=== PATIENT | female | born 1955 | race Caucasian/White ===

== ENCOUNTER 2019-03-17 22:07 | Inpatient (IN) | payer MEDICARE ==
[2019-03-17] MEDS ORDERED: metroNIDAZOLE 500 MG in Premix Bag 1 BAG IVPB SCH (22:45)
[2019-03-17] MEDS ORDERED: Ondansetron ODT 4 MG TAB PO PRN (23:26)
[2019-03-17] MEDS ORDERED: hydrALAZINE 20 MG/ML VIAL SLOW IVP PRN (23:26)
[2019-03-17] MEDS ORDERED: Ondansetron PF 4 MG/2 ML Vial IVP PRN (23:26)
[2019-03-17] MEDS ORDERED: Dextrose 5% in Water 1,000 ML IV PRN (23:26)
[2019-03-17] MEDS ORDERED: Dextrose 50% Abboject 50 ML SYRINGE SLOW IVP PRN (23:26)
[2019-03-17] MEDS ORDERED: Morphine 2 MG/ML SYRINGE SLOW IVP PRN (23:26)
--- NOTE | 2019-03-18 00:14 | RAD ---
Portable frontal chest radiograph: 03/18/2019 COMPARISON: None HISTORY: Preoperative patient FINDINGS: Lungs are clear. Heart and mediastinal contours appear within normal limits. Mild atheroscl erotic calcification of the aortic arch. IMPRESSION: No acute findings.
--- NOTE | 2019-03-18 02:42 | HP ---
REQUESTING ER PHYSICIAN: Annita CONSULTS: Orthopedic Surgery, Dr. Rosas. HISTORY OF PRESENT ILLNESS: This is a 63-year-old female who was a transfer from [place] [facility], status post dog bite. The patient was dog sitting and her pit bull and the other pit bull started to fight and she attempted to break them up when she was bit by the dog that she was dog sitting. The patient reports that the dogs are up-to-date on all vaccinations. The patient reports pain to left hand and wounds to both forearms. The patient was given 1 L of normal saline in [place] [facility] and also vancomycin IV, and morphine 10 mg by EMS for pain. The patient last ate at around 8 a.m. this morning. Trauma service was contacted for admission, Orthopedic Surgery plans to take the patient for washout tomorrow to left open fracture. PAST MEDICAL HISTORY: Stroke 4 years ago with mild right-sided deficit and aphasia which has improved, heart murmur, coronary artery disease, hypertension. PAST SURGICAL HISTORY: Appendectomy, hysterectomy. 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 PSYCHIATRIC HISTORY: Bipolar. ALLERGIES: PENICILLIN AND DOXYCYCLINE. MEDICATIONS: 1. Amlodipine 2.5 mg. 2. Atorvastatin 40 mg at bedtime. 3. Gabapentin 600 mg q.8 hours. 4. Metoprolol extended release 50 mg once a day. REVIEW OF SYSTEMS: A 10-point review of systems is negative unless otherwise indicated in the above HPI. PHYSICAL EXAMINATION: VITAL SIGNS: Blood pressure 113/86, heart rate 73, respirations 20, SpO2 of 96 % on room air, temperature 98. GENERAL: The patient is awake, alert, in no distress. HEENT: Head is atraumatic and normocephalic. Mucous membranes dry. CARDIOVASCULAR: Regular rate, regular rhythm. Positive 3/5 systolic murmur, no pedal edema, no JVD. RESPIRATORY: Chest rise symmetrical, bilateral breath sounds clear, no wheezing , rales, or rhonchi. EXTREMITIES: Dog bites and lacerations to both upper extremities, left 5th digit with swelling and bruising, normal sensation and movement distally, distal pulses 2+ in all extremities, bilateral abrasions to knees. NEUROLOGIC: No focal deficit, mild weakness to right side from previous stroke, mild aphasia from CVA. LABORATORY DATA: WBC 8.3, RBC 5.28, hemoglobin 15.8, hematocrit 49.9, platelets 157. Sodium 143, potassium 5.1, chloride 109, carbon dioxide 21, anion gap 18, BUN 31, creatinine 1.75, estimated GFR 29, glucose 88, lactic acid 1.4, calcium 9.3, total bilirubin 0.4, AST 24, ALT 14, alkaline phosphatase 123. C-reactive protein less than 0.50. DIAGNOSTICS: Left hand x-ray, impression, fracture at the base of the 5th proximal phalanx, presumably an open fracture. Chest x-ray is pending. IMPRESSION: 1. Status post dog bite. 2. Left open hand fracture. 3. Bilateral abrasions and lacerations on both arms. 4. Acute kidney injury on chronic. PLAN: We will admit the patient to the surgical ortho floor. Dr. Rosas was consulted by ER physician, who reports he plans to take the patient for a washout tomorrow around 11. We will place the patient on a pain regimen. The patient will be n.p.o. after midnight and placed on maintenance fluids. We will repeat lab work in the morning to see if kidney function has improved. The plan will be discussed with the attending surgeon after this dictation. Job ID: [id number] [facility]
[2019-03-18] MEDS: Sodium Chloride 0.9% 1,000 ML IV SCH ×3 (04:21→14:06)
[2019-03-18] MEDS: Acetaminophen 500 MG TAB PO SCH ×4 (04:21→17:19)
[2019-03-18] MEDS: traMADol HCl 50 MG TAB PO SCH ×4 (04:21→17:22)
[2019-03-18 05:13] LABS: Anion Gap 10 mmol/L (10-20); BUN (Urea Nitrogen) 24 mg/dL (9.8-20.1); Calc. Creatinine Clearance 0 mL/min (70-130); Calcium 8.5 mg/dL (7.8-10.44); Carbon Dioxide 22 mmol/L (23-31); Chloride 113 mmol/L (98-107); Estimated GFR-MDRD 48; Glucose 86 mg/dL (80-115); Magnesium 1.9 mg/dL (1.6-2.6); Phosphorus 3.8 mg/dL (2.3-4.7); Potassium 4.8 mmol/L (3.5-5.1); Sodium 140 mmol/L (136-145)
[2019-03-18 05:14] VITALS: BMI 18.6
[2019-03-18] MEDS: Oxazepam 10 MG CAP PO SCH ×3 (06:00→21:55)
[2019-03-18 06:04] LABS: #Eosinphils 0.2 thou/uL (0.0-0.7); #Lymphocytes 1.2 thou/uL (1.20-3.40); #Monocytes 0.8 thou/uL (0.11-0.59); #Neutrophils 4.9 thou/uL (1.40-6.50); %Basophils 0.1 % (0.0-1.0); %Eosinophils 2.9 % (0.0-10.0); %Lymphocytes 17.4 % (21.0-51.0); %Monocytes 11.1 % (0.0-10.0); %Neutrophils 68.4 % (42.0-75.0); Hemoglobin 14.1 g/dL (12.0-16.0); Large Platelets SLIGHT; MDiff Complete? YES; Mean Corpuscular HGB CONC 32.7 g/dL (32.0-36.0); Mean Corpuscular Hemoglobin 30.7 pg (27.0-31.0); Mean Corpuscular Volume 93.9 fL (78.0-98.0); Platelet Count 117 thou/uL (130-400); Platelet Morphology Comment Appears Decreased; Red Blood Cell (RBC) Count 4.57 mill/uL (4.20-5.40); White Blood Cell (WBC) Count 7.1 thou/uL (4.8-10.8)
--- NOTE | 2019-03-18 08:47 | CON ---
DATE OF CONSULTATION: 03/18/2019 BRIEF HISTORY OF PRESENT ILLNESS: The patient is a 63-year-old right-hand dominant lady, who was transferred from the [facility] to [facility] in [place] following a dog bite to her left hand and forearm. She reports that her pit bull began to fight with another pit bull, when she tried to break the fight up when she was bit in the hand and forearm. Upon evaluation in [place], she was found to have a fracture at the base of the proximal phalanx of the small finger with a puncture wound dorsally. There was some displacement. The patient was given antibiotics in [place], and was also found to be mildly hypotensive. She was given some IV fluids and then transferred to [facility] where the Trauma Team admitted her for anticipated orthopedic irrigation, debridement, and stabilization of the fracture. This morning, the patient is examined in her hospital bed. She is awake, alert, and appears comfortable. PAST MEDICAL HISTORY: Remarkable for a stroke approximately 4 years ago with some right-sided strength deficit. She also has an expressive aphasia. The patient also with a history of heart murmur, coronary artery disease, and hypertension. PAST SURGICAL HISTORY: Includes hysterectomy and appendectomy. MEDICATIONS: Include, 1. Metoprolol once daily. 2. Atorvastatin. 3. Amlodipine. 4. Gabapentin. ALLERGIES: TO PENICILLIN AND DOXYCYCLINE. SOCIAL HISTORY: The patient is a smoker and has a nearly 50 pack-year history. Does have a past history of drug use and does consume alcoholic beverages daily. FAMILY HISTORY: Noncontributory for this admission. REVIEW OF SYSTEMS: No recent fevers, chills, or sweats. The patient denies chest pain or shortness of breath. She denies numbness or tingling in the left hand. She does have some mild sensory deficits in the right hand secondary to her stroke. PHYSICAL EXAMINATION: VITAL SIGNS: She has a temperature of 97.8, heart rate of 60, respiratory rate of 18, and blood pressure of 111/70. HEENT: Atraumatic and normocephalic. HEART: Shows a regular rate and rhythm with a 3/6 systolic ejection murmur. LUNGS: Clear to auscultation bilaterally with good breath sounds. Chest wall is nontender. EXTREMITIES: Remarkable for bilateral lower extremities that are atraumatic. A right upper extremity with some diffuse weakness within the arm, but no deformities or focal complaints of pain. A left upper extremity with an atraumatic shoulder and elbow. She was found to have some puncture wounds scattered along the forearm, but without extensive bleeding. Her forearm compartments are soft. Distally, she has a puncture wound over the dorsal aspect of the base of the small finger. She has an extension deformity at this fracture at the base of the proximal phalanx. She has intact sensation in the radial, median, and ulnar distributions. LABORATORY DATA: She was found to have a white count of 7.1, a hematocrit of 42.9, and 117,000 platelets. IMAGING STUDIES: Left hand x-ray remarkable for fracture of the base of the fifth digit with dorsiflexion deformity. ASSESSMENT: Status post dog bite injury to left hand with open fracture of left proximal phalanx as well as some abrasions and lacerations of the left forearm. PLAN: At this time, the patient will be taken to the operating room this morning for irrigation and debridement of her open wounds and probable pin stabilization of this fracture. Today, I discussed with the patient risks and benefits of this proposed procedure. Risks include, but are not limited to bleeding, infection, nerve injury, nonunion, malunion, loss of limb or life. The patient appears to understand and does wish to proceed. Consent will be obtained prior to her surgical procedure. Job ID: [id number]
--- NOTE | 2019-03-18 09:50 | HP ---
CHIEF COMPLAINT: Dog bite of arm. HISTORY OF PRESENT ILLNESS: The patient is a 63-year-old female, who was trying to break up a fight between 2 dogs. They then turned on her and lacerated her arms, left greater than right. She also had what appears to be an open fracture and is going to the OR for that. PAST MEDICAL HISTORY: CVA, coronary artery disease, and hypertension. PAST SURGICAL HISTORY: Appendectomy and hysterectomy. MEDICATIONS: 1. Amlodipine. 2. Atorvastatin. 3. Gabapentin. 4. Metoprolol. SOCIAL HISTORY: She does still smoke 1/2 packs per day. Past methamphetamine use. She does drink alcohol. She has bipolar. ALLERGIES: PENICILLIN AND DOXYCYCLINE. PHYSICAL EXAMINATION: VITAL SIGNS: Temperature 97.7, pulse 65, and blood pressure 99/64. GENERAL: She is a thin female, looks older than stated age, in no apparent distress. Left arm is bandaged. HEENT: Otherwise unremarkable. LUNGS: Clear. HEART: Regular rate and rhythm. ABDOMEN: Soft, nondistended, and nontender. EXTREMITIES: She has multiple lacerations of her left forearm and puncture wounds of the right forearm. She is currently in a splint on the left. Pulses intact. She has a mild numbness of lateral fifth digit. LABORATORY DATA: White count 7.1, hemoglobin and hematocrit of 14 and 42, platelet count 117. Electrolytes; creatinine 1.1, chloride 113, CO2 of 22. X-rays show fractures in left hand. ASSESSMENT: Open fracture, left hand. PLAN: Treatment per Orthopedics. Job ID: [id number]
[2019-03-18] MEDS: Gabapentin 300 MG CAP PO SCH ×2 (10:13→17:05)
[2019-03-18] MEDS: Famotidine 20 MG TAB PO SCH ×2 (10:14→21:55)
[2019-03-18] MEDS ORDERED: Neomycin-Polymyxin 1 ML AMP ONE ×2 (11:42→12:45)
[2019-03-18] MEDS ORDERED: Fentanyl 100 MCG/2 ML VIAL ONE ×2 (11:52→14:07)
[2019-03-18] MEDS ORDERED: metroNIDAZOLE 500 MG/100 ML BAG ONE (12:28)
[2019-03-18] MEDS ORDERED: Meperidine HCl/PF 25 MG/ML VIAL SLOW IVP PRN (13:03)
[2019-03-18] MEDS ORDERED: Ondansetron HCl/PF 4 MG/2 ML Vial IVP PRN (13:03)
[2019-03-18] MEDS ORDERED: Promethazine HCl 25 MG/ML VIAL SLOW IVP PRN (13:03)
[2019-03-18] MEDS ORDERED: Promethazine HCl 25 MG/ML VIAL IM PRN (13:03)
--- NOTE | 2019-03-18 13:14 | RAD ---
EXAM: 3 views of the left small finger HISTORY: Proximal phalanx fracture COMPARISON: None FINDINGS: A single limited fluoroscopic view of the small finger shows the patient is status post K w anthony fixation of the proximal phalanx fracture. IMPRESSION: Status post percutaneous fixation of proximal phalanx fracture
[2019-03-18] MEDS ORDERED: Clindamycin 150 MG CAP PO SCH (13:30)
[2019-03-18 15:56] LABS: #Eosinphils 0.2 thou/uL (0.0-0.7); #Lymphocytes 0.9 thou/uL (1.20-3.40); #Monocytes 0.4 thou/uL (0.11-0.59); #Neutrophils 4.2 thou/uL (1.40-6.50); %Basophils 0.1 % (0.0-1.0); %Eosinophils 3.3 % (0.0-10.0); %Lymphocytes 15.6 % (21.0-51.0); %Monocytes 7.8 % (0.0-10.0); %Neutrophils 73.2 % (42.0-75.0); Hemoglobin 12.8 g/dL (12.0-16.0); Mean Corpuscular HGB CONC 31.4 g/dL (32.0-36.0); Mean Corpuscular Hemoglobin 30.2 pg (27.0-31.0); Mean Corpuscular Volume 96.2 fL (78.0-98.0); Mean Platelet Volume 9.1 fL (7.4-10.4); Platelet Count 131 thou/uL (130-400); RBC Distribution Width 14.1 % (11.5-14.5); Red Blood Cell (RBC) Count 4.22 mill/uL (4.20-5.40); White Blood Cell (WBC) Count 5.7 thou/uL (4.8-10.8)
[2019-03-18 16:02] LABS: Prothrombin Time 13.6 SEC (12.0-14.7)
[2019-03-18] MEDS ORDERED: PHENYLEPHRINE-NS 100 MCG/ML 10 ML SYRINGE ONE (16:15)
[2019-03-18] MEDS ORDERED: Ketorolac Tromethamine 30 MG/ML VIAL ONE (16:15)
[2019-03-18] MEDS ORDERED: Metoclopramide HCl 10 MG/2 ML VIAL ONE (16:15)
[2019-03-18] MEDS ORDERED: Ondansetron PF 4 MG/2 ML Vial ONE (16:15)
[2019-03-18] MEDS ORDERED: Lidocaine 1% PF 5 ML VIAL ONE (16:15)
[2019-03-18] MEDS ORDERED: PROPOFOL 200 MG/20 ML VIAL ONE (16:15)
[2019-03-18] MEDS ORDERED: ePHEDrine 50 MG/ML VIAL ONE (16:15)
[2019-03-18 16:17] LABS: Anion Gap 11 mmol/L (10-20); BUN (Urea Nitrogen) 22 mg/dL (9.8-20.1); Calc. Creatinine Clearance 40 mL/min (70-130); Calcium 8.4 mg/dL (7.8-10.44); Carbon Dioxide 21 mmol/L (23-31); Chloride 111 mmol/L (98-107); Estimated GFR-MDRD 47; Glucose 94 mg/dL (80-115); Magnesium 1.7 mg/dL (1.6-2.6); Phosphorus 4.1 mg/dL (2.3-4.7); Potassium 4.3 mmol/L (3.5-5.1); Sodium 139 mmol/L (136-145)
[2019-03-18 16:18] LABS: Lactic Acid 1.3 mmol/L (0.5-2.2)
[2019-03-18] MEDS ORDERED: Magnesium 2 GM/50 ML 2 GM in Premix Bag 1 BAG IVPB SCH (17:00)
[2019-03-18] MEDS ORDERED: Hydrocortisone Sod Succ/PF 100 mg/2 ml Vial IVP SCH ×2 (17:00)
[2019-03-18] MEDS: Clindamycin 150 MG CAP PO SCH (17:05)
[2019-03-18] MEDS: Ciprofloxacin 500 MG TAB PO SCH (21:55)
[2019-03-18] MEDS: Atorvastatin Calcium 40 MG TAB PO SCH (21:55)
[2019-03-18] MEDS: traMADol HCl 50 MG TAB PO PRN (22:08)
[2019-03-19] MEDS: traMADol HCl 50 MG TAB PO SCH ×4 (00:12→17:43)
[2019-03-19] MEDS: Gabapentin 300 MG CAP PO SCH ×3 (00:13→16:25)
[2019-03-19] MEDS: Hydrocortisone Sod Succ/PF 100 mg/2 ml Vial IVP SCH ×4 (00:13→17:43)
[2019-03-19] MEDS: Acetaminophen 500 MG TAB PO SCH ×4 (00:13→17:43)
[2019-03-19] MEDS: Clindamycin 150 MG CAP PO SCH ×3 (00:13→16:25)
[2019-03-19] MEDS: Sodium Chloride 0.9% 1,000 ML IV SCH (02:11)
[2019-03-19 04:34] LABS: #Basophils 0.1 thou/uL (0.0-0.2); #Lymphocytes 0.2 thou/uL (1.20-3.40); #Monocytes 0.2 thou/uL (0.11-0.59); #Neutrophils 4.8 thou/uL (1.40-6.50); %Basophils 1.4 % (0.0-1.0); %Eosinophils 0.2 % (0.0-10.0); %Lymphocytes 4.2 % (21.0-51.0); %Monocytes 2.9 % (0.0-10.0); %Neutrophils 91.3 % (42.0-75.0); Hemoglobin 12.1 g/dL (12.0-16.0); Mean Corpuscular HGB CONC 31.5 g/dL (32.0-36.0); Mean Corpuscular Hemoglobin 30.5 pg (27.0-31.0); Mean Corpuscular Volume 96.7 fL (78.0-98.0); Mean Platelet Volume 9.4 fL (7.4-10.4); Platelet Count 129 thou/uL (130-400); RBC Distribution Width 14.1 % (11.5-14.5); Red Blood Cell (RBC) Count 3.95 mill/uL (4.20-5.40); White Blood Cell (WBC) Count 5.3 thou/uL (4.8-10.8)
[2019-03-19 05:04] LABS: Anion Gap 10 mmol/L (10-20); BUN (Urea Nitrogen) 22 mg/dL (9.8-20.1); Calc. Creatinine Clearance 35 mL/min (70-130); Calcium 8.6 mg/dL (7.8-10.44); Carbon Dioxide 21 mmol/L (23-31); Chloride 111 mmol/L (98-107); Estimated GFR-MDRD 40; Glucose 132 mg/dL (80-115); Magnesium 2.3 mg/dL (1.6-2.6); Phosphorus 3.8 mg/dL (2.3-4.7); Potassium 5.2 mmol/L (3.5-5.1); Sodium 137 mmol/L (136-145)
[2019-03-19] MEDS: Ciprofloxacin 500 MG TAB PO SCH ×2 (05:31→20:16)
[2019-03-19] MEDS: Oxazepam 10 MG CAP PO SCH ×2 (05:31→13:56)
[2019-03-19] MEDS: Famotidine 20 MG TAB PO SCH ×2 (08:21→20:15)
[2019-03-19] MEDS ORDERED: Aspirin 81 mg Enteric Coated Tablet PO SCH (09:00)
[2019-03-19] MEDS ORDERED: Sodium Chloride 0.9% 1,000 ML IV SCH (09:49)
--- NOTE | 2019-03-19 10:13 | OP ---
DATE OF PROCEDURE: 03/18/2019 PREOPERATIVE DIAGNOSES: 1. Open fracture, left small finger proximal phalanx. 2. Multiple soft tissue dog bite wounds, left hand and left forearm. POSTOPERATIVE DIAGNOSES: 1. Open fracture, left small finger proximal phalanx, extra-articular. 2. Lacerations of dorsal aspect of left palm proximal to the metacarpophalangeal joint measuring approximately 3 cm with forearm lacerations in total measuring approximately 5 cm with puncture wounds through the fascia. PROCEDURE PERFORMED: 1. Closed reduction and percutaneous pin stabilization of left proximal phalanx fracture, small finger. 2. Irrigation and debridement of multiple bite wounds to left hand and left forearm. 3. Wound closure of left forearm and left dorsal hand laceration measuring 3 cm. ANESTHESIA: General. TOURNIQUET TIME: 29 minutes at 250 mmHg. COMPLICATIONS: None. DRAINS: None. SPECIMEN: None. INDICATIONS FOR PROCEDURE: The patient is a 63-year-old right-hand dominant lady, who is status post dog bite wound to left hand and forearm. X-rays demonstrate a fracture of the base of the proximal phalanx. The patient now is taken to the operating room for irrigation and debridement of these multiple bite wounds as well as stabilization of the proximal phalanx fracture. DESCRIPTION OF PROCEDURE: The patient was brought to the operating room and a time-out performed followed by induction of general anesthesia. Next, a sterile prep and drape were performed of the left upper extremity. She was found to have multiple puncture wounds in the forearm, approximately 4 of these appeared to be deep to the fascia. Next, the limb was elevated and then tourniquet inflated to 250 mmHg. Next, the 4 puncture wounds were felt to go deep to the fascia were increased, incised with a scalpel such that the fascia could be appreciated. Indeed, there was penetration of the fascia. These were explored and found to be free of any obvious foreign body. Next, each of these 4 wounds were thoroughly irrigated with bulb syringe and normal saline with antibiotic irrigant added. Once thoroughly irrigated, further inspection was made and no necrotic tissue was encountered. In 3 of these 4 small wounds, the surgical extension was closed with 4-0 nylon loosely with the traumatic portion of the wound left open for drainage. Next, attention was placed to the left hand. She was found to have 2 puncture wounds, 1 over the volar surface of the ulnar side of the hand just proximal to the metacarpophalangeal joint. The other 1 more jagged and lengthy and laceration dorsally. These were both inspected. The volar wound found to be very superficial. The dorsal wound did extend into the extensor tendons, although the tendons as visualized through this traumatic wound were found to be intact. This wound was irrigated with a liter of normal saline using bulb syringe as was the palmar wound. Next, the fracture was inspected with C-arm. It was found to be dorsally angulated as such it was reduced manually, and then, 2 K-wires measuring 0.045 were passed from the base of the proximal phalanx obliquely across the fracture and up into the distal shaft. This restored angular alignment and also rotational alignment. Final AP and lateral C-arm images were then obtained. The traumatic wounds were then loosely reapproximated with 4-0 nylon. At the completion of this, Xeroform bulky gauze and fiberglass splint dressing were applied to the arm, and then, the patient was transferred to recovery room in stable condition. Tourniquet was let down at the completion of dressing. Job ID: [id number]
[2019-03-19] MEDS: traMADol HCl 50 MG TAB PO PRN (14:42)
--- NOTE | 2019-03-19 14:53 | PRG ---
DATE OF SERVICE: 03/19/2019 SUBJECTIVE: The patient was seen this morning, lying in bed and nasal cannula oxygen in place, reported pain is well controlled. Bilateral upper extremities with dressings and left upper extremity with splint in place. Postoperatively, the patient had episode of hypotension that was resolved with 500 mL of crystalloid intraoperatively. The patient was also hypotensive and received vasopressors. This morning, she is awake and alert and blood pressure has improved. She is continuing to urinate normal saline at 50 an hour. She denies nausea, vomiting, or diarrhea. OBJECTIVE: GENERAL: Middle-aged female, sitting in bed with no signs of acute distress. PULMONARY: Equal chest rise and fall. Clear breath sounds bilaterally. No signs of acute respiratory distress. However, the patient does take very shallow breaths naturally. CARDIAC: Regular rate and rhythm. No murmurs, gallops, or rubs. GI: Abdomen is soft, nontender, and nondistended. EXTREMITIES: 2+ pulses in all extremities. No significant swelling noted. Gross motor and sensation intact. Dressings to bilateral upper extremities and splint in place to left upper extremity. NEUROLOGIC: GCS is 15. Gross motor and sensation are intact. Pupils equal, round, and reactive to light bilaterally. LABORATORY FINDINGS: White count 5.3, hemoglobin 12.1, hematocrit 38.2, platelets 129. Sodium 134, potassium 5.2, chloride 111, carbon dioxide 21, BUN 22, creatinine 1.33, and glucose 134. DIAGNOSTIC FINDINGS: There are no new diagnostic findings to report. ASSESSMENT: 1. Status post attack by dog. 2. Fracture of the left base of the fifth proximal phalanx. 3. Wounds to bilateral upper extremities, status post repair. 4. Acute on chronic kidney disease, worse today. 5. History of hypertension and bipolar disorder. PLAN: The patient was urgently going to be discharged today; however, her kidney function has slightly gotten worse. It is likely that it was caused from the hypotensive episode yesterday. We will continue normal saline at 50 an hour and reassess her kidney function at that time. The patient is complaining that she is drowsy, so we will discontinue the Serax today and monitor closely for signs of alcohol withdrawal and consider restarting at a smaller dose at that time. Continue current pain regimen. The patient denying DVT prophylaxis with aspirin because she reports she has a history of GI bleed. She would not like to receive anticoagulants at this time. Continue current antibiotics as prescribed by Orthopedic Surgery. Restart home medications as clinically indicated. The patient was discussed with Dr. Espinosa before this dictation. Job ID: [id number]
[2019-03-19] MEDS ORDERED: Albuterol Sulfate 1.25 MG/3 ML NEB NEB PRN (16:33)
[2019-03-19] MEDS ORDERED: Albuterol Sulfate 1.25 MG/3 ML NEB NEB SCH (16:45)
--- NOTE | 2019-03-19 16:59 | RAD ---
Portable frontal chest radiograph: 03/19/2019 COMPARISON: 03/17/2019 HISTORY: Shortness of breath FINDINGS: There is new diffuse interstitial prominence with new pulmonary vascular congestion. Small new bilateral pleural effusions are noted with new airspace disease within the right lung base. IMPRESSION: Findings suggesting interval development of pulmonary edema. Infectious pneumonitis canno t be excluded. Follow-up imaging following treatment to document resolution advised.
[2019-03-19] MEDS ORDERED: Furosemide 20 MG/2 ML VIAL SLOW IVP SCH ×2 (17:30→21:30)
[2019-03-19] MEDS: Senokot S 8.6-50 MG TAB PO SCH (20:15)
[2019-03-19] MEDS: Atorvastatin Calcium 40 MG TAB PO SCH (20:16)
[2019-03-20] MEDS: Acetaminophen 500 MG TAB PO SCH ×4 (00:11→16:25)
[2019-03-20] MEDS: Hydrocortisone Sod Succ/PF 100 mg/2 ml Vial IVP SCH ×4 (00:11→17:16)
[2019-03-20] MEDS: Gabapentin 300 MG CAP PO SCH ×3 (00:11→16:25)
[2019-03-20] MEDS: Clindamycin 150 MG CAP PO SCH ×3 (00:11→16:25)
[2019-03-20] MEDS: traMADol HCl 50 MG TAB PO SCH ×4 (00:12→17:21)
[2019-03-20 05:21] LABS: #Lymphocytes 0.5 thou/uL (1.20-3.40); #Monocytes 0.4 thou/uL (0.11-0.59); #Neutrophils 8.7 thou/uL (1.40-6.50); %Basophils 0.2 % (0.0-1.0); %Eosinophils 0.1 % (0.0-10.0); %Monocytes 3.8 % (0.0-10.0); %Neutrophils 90.9 % (42.0-75.0); Hemoglobin 11.4 g/dL (12.0-16.0); Mean Corpuscular HGB CONC 31.3 g/dL (32.0-36.0); Mean Corpuscular Hemoglobin 30.3 pg (27.0-31.0); Mean Corpuscular Volume 96.6 fL (78.0-98.0); Platelet Count 144 thou/uL (130-400); RBC Distribution Width 14.4 % (11.5-14.5); Red Blood Cell (RBC) Count 3.76 mill/uL (4.20-5.40); White Blood Cell (WBC) Count 9.6 thou/uL (4.8-10.8)
[2019-03-20] MEDS: Ciprofloxacin 500 MG TAB PO SCH ×2 (05:37→20:38)
[2019-03-20 05:45] LABS: Anion Gap 11 mmol/L (10-20); BUN (Urea Nitrogen) 22 mg/dL (9.8-20.1); Calc. Creatinine Clearance 34 mL/min (70-130); Calcium 8.7 mg/dL (7.8-10.44); Carbon Dioxide 24 mmol/L (23-31); Chloride 110 mmol/L (98-107); Estimated GFR-MDRD 39; Glucose 138 mg/dL (80-115); Phosphorus 2.7 mg/dL (2.3-4.7); Sodium 141 mmol/L (136-145)
[2019-03-20] MEDS ORDERED: PHOS-NAK 1 PKT PACK PO SCH (07:15)
--- NOTE | 2019-03-20 08:31 | RAD ---
PORTABLE CHEST: COMPARISON: Prior day's exam. HISTORY: Shortness of breath. FINDINGS: Heart size is within normal limits. There are atherosclerotic changes of the aorta. Interstitial jay ng markings appear slightly improved as compared to the prior examination. IMPRESSION: Cardiomegaly with some increased interstitial markings and slightly more confluent changes in the rig ht base. The right basilar changes are similar to the prior exam. Interstitial change show a sugges tion of some slight improvement which may indicate some resolving edema. There is some blunting to t he right costophrenic angle suggesting a small right effusion. POS: TPC
[2019-03-20] MEDS: Amlodipine 5 MG TAB PO SCH (08:41)
[2019-03-20] MEDS: Famotidine 20 MG TAB PO SCH (08:41)
[2019-03-20] MEDS: Senokot S 8.6-50 MG TAB PO SCH ×2 (08:41→20:38)
[2019-03-20] MEDS: traMADol HCl 50 MG TAB PO PRN ×2 (08:42→16:25)
[2019-03-20] MEDS: Enoxaparin Sodium 30 MG/0.3 ML SYRINGE SC SCH (08:43)
[2019-03-20] MEDS: Polyethylene Glycol 3350 17 GM Packet PO SCH (08:43)
--- NOTE | 2019-03-20 11:47 | EKG ---
Test Reason : Blood Pressure : / mmHG Vent. Rate : 060 BPM Atrial Rate : 060 BPM P-R Int : 138 ms QRS Dur : 082 ms QT Int : 450 ms P-R-T Axes : 064 001 103 degrees QTc Int : 450 ms Normal sinus rhythm Left ventricular hypertrophy with repolarization abnormality Abnormal ECG When compared with ECG of 18-MAR-2019 09:34, (Unconfirmed) No significant change was found Confirmed by DR. Reji AN (3) on 03/20/2019 11:47:22 AM Referred By: MARISSA Confirmed By:DR. Reji AN
--- NOTE | 2019-03-20 11:52 | EKG ---
Test Reason : Blood Pressure : / mmHG Vent. Rate : 107 BPM Atrial Rate : 107 BPM P-R Int : 128 ms QRS Dur : 088 ms QT Int : 342 ms P-R-T Axes : 071 005 152 degrees QTc Int : 456 ms Sinus tachycardia Left ventricular hypertrophy with repolarization abnormality Abnormal ECG When compared with ECG of 18-MAR-2019 09:36, (Unconfirmed) Vent. rate has increased BY [address] Reji AN (3) on 03/20/2019 11:51:45 AM Referred By: Confirmed By:DR. Reji AN
--- NOTE | 2019-03-20 14:43 | PRG ---
DATE OF SERVICE: 03/20/2019 SUBJECTIVE: The patient was seen this morning sitting up in bed with nasal cannula oxygen, reporting shortness of breath is much better and improved. Yesterday afternoon, the patient developed some shortness of breath after taking a nap with SpO2 at 80. She was placed on 2 L nasal cannula and given a DuoNeb breathing treatment. She also received 20 mg of IV Lasix twice. She does report that her symptoms are almost resolved today. She does have a history of a heart murmur. Initially, she did not know which valve it was, but after an echo completed today showed it was a mitral valve regurgitation. Cardiology was consulted for further evaluation. She is postoperative day 3 now, status post closed reduction of the left small finger and I and D of multiple bite wounds on her left hand and left forearm with wound closure of the left forearm and left dorsum of the hand. She is tolerating a regular diet, ambulating independently. Chest x-ray and EKG were also completed yesterday. She is back on all of her home medications at this time. OBJECTIVE: VITAL SIGNS: Temperature 98.4, pulse 89, respirations 16, oxygen saturation 94% on room air, and blood pressure 126/71. GENERAL: Middle-aged female, sitting up in bed with no signs of acute distress. PULMONARY: Equal chest rise and fall. Minimal crackles at the bilateral bases, but otherwise clear in the upper lungs. No signs of acute respiratory distress. No wheezing. She does take very shallow breaths naturally. She does have 2 L nasal cannula oxygen at this time. CARDIAC: Regular rate and rhythm. No murmurs, gallops, or rubs. GI: Abdomen is soft, nontender, and nondistended. EXTREMITIES: 2+ pulses in all extremities. No significant swelling noted. Gross motor and sensation are intact. Dressings to the bilateral upper extremities and a splint in place to the left upper extremity. NEUROLOGIC: GCS is 15. Gross motor and sensation are intact. Pupils equal, round, and reactive to light bilaterally. LABORATORY DATA: White count 9.6, hemoglobin 11.9, hematocrit 36.3, and platelets 144. Sodium 141, , chloride 100, carbon dioxide 24, BUN 22, creatinine 1.36, glucose 138, , magnesium 2.0. BNP 2657. DIAGNOSTIC FINDINGS: Chest x-ray completed this morning demonstrates cardiomegaly with some nonspecific interstitial markings and slightly more confluent changes in the right base. The right basilar changes are similar to the prior exam. Interstitial change shows a suggestion of some slight improvement, which may indicate some resolving edema. There is some blunting in the right costophrenic angle, suggestive of small right effusion. ASSESSMENT: 1. Status post attack by a dog. 2. Fracture of the left base of the fifth proximal phalanx. 3. Wounds to bilateral upper extremities, status post repair. 4. Acute on chronic injury, stable today. 5. Chronic heart failure exacerbation. 6. History of hypertension and bipolar disorder. PLAN: The patient received 20 mg of IV Lasix twice yesterday as well as DuoNeb twice. Her symptoms are much improved today. Echo was completed and unofficial review demonstrated severe mitral regurgitation. EKG completed yesterday also showed left ventricular hypertrophy. We will consult Cardiology and Dr. Reed has agreed to see the patient today. Continue current diet and pain medications. We will touch base with Ortho Surgery as they ordered Cipro and clindamycin for the patient and we would prefer to switch to Augmentin. The patient refusing aspirin for DVT prophylaxis as she reports she has had a GI bleed previously. We will start her on Lovenox today. We will also replace her phosphorus. She is to continue to work with Physical and Occupational Therapy. We will follow up the recommendations of Dr. Reed and determine disposition at that time. The patient was seen and examined by Dr. Kelly this morning during rounds. Job ID: [id number]
[2019-03-20] MEDS: Atorvastatin Calcium 40 MG TAB PO SCH (20:38)
[2019-03-20] MEDS ORDERED: Enoxaparin Sodium 40 MG/0.4 ML SYRINGE SC SCH (21:00)
[2019-03-21] MEDS: Gabapentin 300 MG CAP PO SCH ×2 (00:09→08:25)
[2019-03-21] MEDS: Hydrocortisone Sod Succ/PF 100 mg/2 ml Vial IVP SCH ×2 (00:09→05:44)
[2019-03-21] MEDS: Acetaminophen 500 MG TAB PO SCH ×2 (00:09→05:41)
[2019-03-21] MEDS: Clindamycin 150 MG CAP PO SCH ×2 (00:09→08:25)
[2019-03-21] MEDS: traMADol HCl 50 MG TAB PO SCH ×2 (00:10→05:42)
[2019-03-21 04:49] LABS: #Lymphocytes 0.7 thou/uL (1.20-3.40); #Monocytes 0.4 thou/uL (0.11-0.59); #Neutrophils 7.4 thou/uL (1.40-6.50); %Basophils 0.3 % (0.0-1.0); %Eosinophils 0.1 % (0.0-10.0); %Lymphocytes 8.5 % (21.0-51.0); %Monocytes 4.1 % (0.0-10.0); %Neutrophils 86.9 % (42.0-75.0); Hemoglobin 11.4 g/dL (12.0-16.0); Mean Corpuscular HGB CONC 31.9 g/dL (32.0-36.0); Mean Corpuscular Hemoglobin 30.7 pg (27.0-31.0); Mean Corpuscular Volume 96.2 fL (78.0-98.0); Platelet Count 147 thou/uL (130-400); RBC Distribution Width 14.6 % (11.5-14.5); Red Blood Cell (RBC) Count 3.73 mill/uL (4.20-5.40); White Blood Cell (WBC) Count 8.5 thou/uL (4.8-10.8)
[2019-03-21 05:08] LABS: Anion Gap 13 mmol/L (10-20); BUN (Urea Nitrogen) 25 mg/dL (9.8-20.1); Calc. Creatinine Clearance 44 mL/min (70-130); Calcium 8.5 mg/dL (7.8-10.44); Carbon Dioxide 25 mmol/L (23-31); Chloride 105 mmol/L (98-107); Estimated GFR-MDRD 53; Glucose 115 mg/dL (80-115); Magnesium 1.8 mg/dL (1.6-2.6); Phosphorus 3.1 mg/dL (2.3-4.7); Potassium 3.9 mmol/L (3.5-5.1); Sodium 139 mmol/L (136-145)
[2019-03-21] MEDS: Ciprofloxacin 500 MG TAB PO SCH (05:41)
[2019-03-21] MEDS ORDERED: PHOS-NAK 1 PKT PACK PO SCH (07:30)
[2019-03-21 07:42] VITALS: BP 152/80; TEMP 98
[2019-03-21] MEDS: Enoxaparin Sodium 30 MG/0.3 ML SYRINGE SC SCH (08:25)
[2019-03-21] MEDS: Senokot S 8.6-50 MG TAB PO SCH (08:25)
[2019-03-21] MEDS: Amlodipine 5 MG TAB PO SCH (08:26)
[2019-03-21] MEDS: Polyethylene Glycol 3350 17 GM Packet PO SCH (08:27)
[2019-03-21] MEDS ORDERED: Famotidine 20 MG TAB PO SCH (09:00)
[2019-03-21] MEDS ORDERED: Lisinopril 5 MG TAB PO SCH (10:15)
--- NOTE | 2019-03-21 10:40 | CON ---
DATE OF CONSULTATION: 03/21/2019 REASON FOR CONSULTATION: Coronary artery disease, uncontrolled hypertension, peripheral vascular disease, tobacco abuse, recent dog bite. Mitral regurgitation. HISTORY OF PRESENT ILLNESS: Ms. Lucio is a 63-year-old woman with a long history of heart disease. She was seen here by Dr. Valderrama in 2002. She was found to have inferior ischemia on stress testing and underwent stent implantation. She had a 4.0 x 15 mm near DENISSE stent. She underwent repeat catheterization, was found have no restenosis. She said she has had multiple stents placed in her heart. She cannot give me any details. She said it is done by Dr. Sanchez. Dr. Sanchez also placed stents in her leg arteries. Unfortunately, she has continued to smoke. She is admitted on this occasion with dog bite. She does remember when she saw Dr. Sanchez last. PAST MEDICAL HISTORY: She also had a history of stroke with some aphasia in 2013. MEDICATIONS: Listed to be metoprolol 50 mg a day and amlodipine 2.5 mg a day. She said she cannot take aspirin or Plavix because of recurrent gastrointestinal bleeding. ALLERGIES: TO DOXYCYCLINE AND PENICILLIN. MENTIONED, SHE SAID SHE CANNOT TAKE ASPIRIN OR PLAVIX. SOCIAL HISTORY: She continued to smoke. She said she is determined to quit smoking now. REVIEW OF SYSTEMS: CONSTITUTIONAL: No significant weight gain or loss. VISION: No changes. HEARING: No changes. PULMONARY: No cough or wheezing. GASTROINTESTINAL: No nausea, vomiting, diarrhea. SKIN: No rashes. NEUROLOGIC: No unilateral weakness or numbness. She does have a history of previous stroke with some aphasia, but she is able to communicate adequately. PHYSICAL EXAMINATION: GENERAL: This is a thin 63-year-old woman, 5 feet 5 inches tall, 112 pounds. NECK: Neck veins are normal. Carotid normal upstrokes. VITAL SIGNS: Blood pressure 169/83, followed by 152/80. Pulse 80s. HEENT: Eyes; sclerae nonicteric. Mouth, mucous membranes moist. LUNGS: Clear. CARDIAC: Normal S1, normal S2. There is a 2/6 apical systolic murmur. ABDOMEN: Soft and nontender. EXTREMITIES: No clubbing or cyanosis. No edema. SKIN: Warm and dry. PERIPHERAL PULSES: She has good popliteal pulses bilaterally, but pedal pulses are diminished. LABORATORY DATA: The patient's creatinine was 1.14 on admission, 1.36 yesterday, 1.06 today. Echocardiogram revealed left ventricular hypertrophy, moderate to severe annular calcification, moderate to severe mitral regurgitation. Pulmonary hypertension is present. The patient is ready to go home from a surgical standpoint. She had a dog bite. She required some surgical care as is outlined in the chart. ASSESSMENT: 1. History of coronary artery disease. 2. Peripheral vascular disease. 3. Continued smoking. 4. Hypertension, uncontrolled. 5. Previous stroke. 6. Intolerance to aspirin or Plavix, bleeding she says. 7. Renal insufficiency, improved. PLAN: 1. Add lisinopril 5 mg a day. 2. I told her she needs to either followup with us or Dr. Sanchez. 3. Continue other medicines unchanged. 4. Statin. 5. Reinforced importance of not smoking. 6. Would not be a candidate for further stenting if she cannot tolerate any anti-platelet drugs. Long-term prognosis is guarded. Job ID: [id number]
[2019-03-22] MEDS ORDERED: Lisinopril 5 MG TAB PO SCH (09:00)
== END 2019-03-21 11:00 | disposition home or self-care (01) | DRG 501 ==
LOC: ERS 22:07 → SURG A 22:30 → OBSVTOIN 03-20 15:00
PROVIDERS: ADMIT Surgery; ATTEND Surgery
PROC: 0J9H0ZZ Drainage of Left Lower Arm Subcutaneous Tissue and Fascia, Open Approach (ICD-10-PCS; principal; 2019-03-18)
PROC: 0J9K0ZZ Drainage of Left Hand Subcutaneous Tissue and Fascia, Open Approach (ICD-10-PCS; 2019-03-18)
PROC: 0PSV34Z Reposition Left Finger Phalanx with Internal Fixation Device, Percutaneous Approach (ICD-10-PCS; 2019-03-18)
DX: S62.617B Displaced fracture of proximal phalanx of left little finger, initial encounter for open fracture (principal); N17.9 Acute kidney failure, unspecified; I13.0 Hypertensive heart and chronic kidney disease with heart failure and stage 1 through stage 4 chronic kidney disease, or unspecified chronic kidney disease; I25.10 Atherosclerotic heart disease of native coronary artery without angina pectoris; F17.210 Nicotine dependence, cigarettes, uncomplicated; F31.9 Bipolar disorder, unspecified; N18.9 Chronic kidney disease, unspecified; I50.9 Heart failure, unspecified; I73.9 Peripheral vascular disease, unspecified; I34.0 Nonrheumatic mitral (valve) insufficiency; S51.812A Laceration without foreign body of left forearm, initial encounter; W54.0XXA Bitten by dog, initial encounter; Z90.710 Acquired absence of both cervix and uterus; I69.320 Aphasia following cerebral infarction; Z90.49 Acquired absence of other specified parts of digestive tract; Z88.0 Allergy status to penicillin; Z88.1 Allergy status to other antibiotic agents
CPT/HCPCS: 26720; 36415; 36416; 71045; 76000; 80048; 82533; 83605; 83735; 83880; 84100; 85025; 85610; 90471; 90732; 93005; 93010; 93306; 94640; 96365; 96366; 96368; G0009; G0390; J0131; J0360; J1650; J1720; J1885; J1940; J1956; J2001; J2270; J2405; J2704; J2765; J3010; J3475; J3490; J7620

== ENCOUNTER 2019-07-26 13:57 | Emergency (ER) | payer MEDICARE ==
[2019-07-26 15:45] LABS: #Eosinphils 0.2 thou/uL (0.0-0.7); #Lymphocytes 1.9 thou/uL (1.20-3.40); #Monocytes 0.5 thou/uL (0.11-0.59); #Neutrophils 3.4 thou/uL (1.40-6.50); %Basophils 0.3 % (0.0-1.0); %Eosinophils 3.7 % (0.0-10.0); %Lymphocytes 31.1 % (21.0-51.0); %Monocytes 8.3 % (0.0-10.0); %Neutrophils 56.5 % (42.0-75.0); Hemoglobin 15.7 g/dL (12.0-16.0); Mean Corpuscular HGB CONC 32.8 g/dL (32.0-36.0); Mean Corpuscular Hemoglobin 30.6 pg (27.0-31.0); Mean Corpuscular Volume 93.5 fL (78.0-98.0); Mean Platelet Volume 9.5 fL (7.4-10.4); Platelet Count 138 thou/uL (130-400); RBC Distribution Width 13.2 % (11.5-14.5); Red Blood Cell (RBC) Count 5.14 mill/uL (4.20-5.40); White Blood Cell (WBC) Count 5.9 thou/uL (4.8-10.8)
[2019-07-26 16:03] LABS: ALT (SGPT) 17 U/L (8-55); AST (SGOT) 17 U/L (5-34); Albumin 3.8 g/dL (3.4-4.8); Alkaline Phosphatase 109 U/L (40-110); Anion Gap 14 mmol/L (10-20); BUN (Urea Nitrogen) 9 mg/dL (9.8-20.1); Bilirubin, Total 0.5 mg/dL (0.2-1.2); Calc. Creatinine Clearance 0 mL/min (70-130); Calcium 8.5 mg/dL (7.8-10.44); Carbon Dioxide 23 mmol/L (23-31); Chloride 107 mmol/L (98-107); Estimated GFR-MDRD 58; Globulin 2.4 g/dL (2.4-3.5); Glucose 87 mg/dL (80-115); Lipase 42 U/L (8-78); Potassium 5.1 mmol/L (3.5-5.1); Protein, Total 6.2 g/dL (6.0-8.3); Sodium 139 mmol/L (136-145)
== END 2019-07-26 17:11 | disposition home or self-care (01) ==
LOC: ERS 13:57
DX: I95.9 Hypotension, unspecified (principal); I10 Essential (primary) hypertension; F17.210 Nicotine dependence, cigarettes, uncomplicated
CPT/HCPCS: 36415; 80053; 83690; 84484; 85025; 93005; 96360; 96361

== ENCOUNTER 2020-06-30 00:36 | Observation (INO) | payer MEDICARE ==
[2020-06-30 01:05] LABS: Troponin I 0.034 ng/mL (< 0.028)
[2020-06-30] MEDS ORDERED: Ondansetron PF 4 MG/2 ML Vial IVP PRN (01:43)
[2020-06-30] MEDS ORDERED: Calcium Carbonate 500 MG ChewTAB PO PRN (01:43)
[2020-06-30] MEDS ORDERED: Acetaminophen 325 MG TAB PO PRN (01:43)
[2020-06-30] MEDS ORDERED: Acetaminophen 650 MG Suppository PR PRN (01:43)
[2020-06-30] MEDS ORDERED: Ondansetron ODT 4 MG TAB PO PRN (01:43)
[2020-06-30] MEDS ORDERED: HYDROcodone/Acetaminophen 5/325 mg Tablet PO PRN (01:43)
--- NOTE | 2020-06-30 01:46 | PDOC.HHP ---
Hospitalist HPI - History of Present Illness dyspnea History of Present Illness: Case of an 64y/o female with pmhx of cad stent x5 last one over 2y/a, htn and hx of cva with residual R sided weakness and speech disturbance transferred from the [place] [facility] for new onset CHF and elevated troponin. patient refers she has been having progressive dyspnea since 1 month ago but has gotten considerably worse in the last week, she reports orhtopnea, PND and BOWEN patient was also reports some dizziness and elevated blood pressure. she denies any chest pain, palpitation or diaphoresis. Hospitalist ROS - Review of Systems All other systems reviewed; all pertinent +/- noted in HPI/Subj Hospitalist History - Past Surgical History Past Surgical History: reports: Appendectomy, Hysterectomy - Family History Family History: reports: cardiac disorder - Social History Smoking Status: Current every day smoker Alcohol: reports: None Drugs: reports: none - Exam General Appearance: NAD, awake alert Eye: PERRL, anicteric sclera ENT: normocephalic atraumatic, no oropharyngeal lesions Neck: supple, symmetric, no thyromegaly Heart: RRR, no murmur, no gallops Respiratory: no wheezes, no ronchi, normal chest expansion, no tachypnea, rales Gastrointestinal: soft, non-tender, non-distended Extremities: no cyanosis, no clubbing, no edema Skin: normal turgor, no lesions, no rashes Neurological: cranial nerve grossly intact, normal sensation to touch, no weakness Musculoskeletal: normal tone, normal strength, no muscle wasting Psychiatric: normal affect, normal behavior, A&O x 3 Hospitalist H&P A/P - Problem (1) Heart failure Code(s): I50.9 - HEART FAILURE, UNSPECIFIED Status: Acute (2) CAD (coronary artery disease) Code(s): I25.10 - ATHSCL HEART DISEASE OF [place] CORONARY ARTERY W/O ANG PCTRS Status: Acute (3) History of CVA (cerebrovascular accident) Code(s): Z86.73 - PRSNL HX OF TIA (TIA), AND CEREB INFRC W/O RESID DEFICITS Status: Acute (4) HTN (hypertension) Code(s): I10 - ESSENTIAL (PRIMARY) HYPERTENSION Status: Acute (5) Smoker Code(s): F17.200 - NICOTINE DEPENDENCE, UNSPECIFIED, UNCOMPLICATED Status: Acute - Plan Plan: Case of an 64y/o female with the stated pmhx who present with new onset of heart failure heart failure - cxr with vascular congestion - pro bnp in the 1900s - continue with beta paul and acei - lasix 20mg ivq q 12, lasix naive - 2d echo - cardio evaluation - elevated troponin will trend, likely due to demand ischemia - cardiac monitoring - ekg w/o st changes htn - continue home meds - adjust as necessary hx of cva - continue asa + statin for secondary prevention cad - on optimal medical tx with bb acei and stain smoker - advice to quit
[2020-06-30 04:54] LABS: #Basophils 0.1 thou/uL (0.0-0.2); #Eosinphils 0.3 thou/uL (0.0-0.7); #Monocytes 0.6 thou/uL (0.11-0.59); #Neutrophils 2.8 thou/uL (1.40-6.50); %Eosinophils 5.5 % (0.0-10.0); %Lymphocytes 34.6 % (21.0-51.0); %Monocytes 10.4 % (0.0-10.0); %Neutrophils 48.4 % (42.0-75.0); Hemoglobin 14.4 g/dL (12.0-16.0); Mean Corpuscular HGB CONC 33.7 g/dL (32.0-36.0); Mean Corpuscular Hemoglobin 31.1 pg (27.0-31.0); Mean Corpuscular Volume 92.3 fL (78.0-98.0); Mean Platelet Volume 8.9 fL (7.4-10.4); Platelet Count 198 thou/uL (130-400); Red Blood Cell (RBC) Count 4.63 mill/uL (4.20-5.40); White Blood Cell (WBC) Count 5.8 thou/uL (4.8-10.8)
[2020-06-30 05:02] LABS: Hemoglobin A1c 5.1 % (4.0-6.0)
[2020-06-30 05:20] LABS: ALT (SGPT) 23 U/L (8-55); AST (SGOT) 24 U/L (5-34); Albumin 3.5 g/dL (3.4-4.8); Alkaline Phosphatase 92 U/L (40-110); Anion Gap 15 mmol/L (10-20); BUN (Urea Nitrogen) 21 mg/dL (9.8-20.1); Bilirubin, Total 0.4 mg/dL (0.2-1.2); Calc. Creatinine Clearance 0 mL/min (70-130); Calcium 8.9 mg/dL (7.8-10.44); Carbon Dioxide 29 mmol/L (23-31); Chloride 103 mmol/L (98-107); Cholesterol 117 mg/dl (< 200 Desired); Estimated GFR-MDRD 36; Globulin 2.7 g/dL (2.4-3.5); Glucose 90 mg/dL (80-115); HDL Cholesterol 39 mg/dL (>60 Neg Risk); LDL Cholesterol, Calculated 40 mg/dL; Magnesium 1.8 mg/dL (1.6-2.6); Potassium 4.1 mmol/L (3.5-5.1); Protein, Total 6.2 g/dL (6.0-8.3); Sodium 143 mmol/L (136-145); Triglycerides 190 mg/dL (Less than 150)
[2020-06-30] MEDS ORDERED: Furosemide 20 MG/2 ML VIAL ONE ×2 (05:56→14:54)
[2020-06-30] MEDS: Furosemide 20 MG/2 ML VIAL SLOW IVP SCH ×2 (06:07→15:08)
[2020-06-30] MEDS ORDERED: Aspirin 81 mg Enteric Coated Tablet PO SCH (09:00)
[2020-06-30] MEDS ORDERED: Lisinopril 5 MG TAB PO SCH (09:00)
[2020-06-30] MEDS ORDERED: Enoxaparin Sodium 40 MG/0.4 ML SYRINGE SC SCH (09:00)
[2020-06-30] MEDS ORDERED: Lisinopril 2.5 MG TAB PO SCH (09:00)
[2020-06-30] MEDS ORDERED: Enoxaparin Sodium 40 MG/0.4 ML SYRINGE ONE (10:38)
[2020-06-30] MEDS ORDERED: Lisinopril 10 MG TAB ONE (10:38)
[2020-06-30] MEDS ORDERED: Aspirin Chewable 81 MG TAB ONE (10:38)
[2020-06-30 11:42] VITALS: BP 145/74
--- NOTE | 2020-06-30 13:52 | PDOC.HOSPP ---
- Subjective Encounter Date: 06/30/20 Subjective: No new issues. Feels better. SOB improved. - Objective Vital Signs & Weight: Vital Signs (12 hours) Pulse BP 06/30/20 11:42 66 145/74 H Result Diagrams: 06/30/20 04:34 06/30/20 04:34 Hospitalist ROS - Review of Systems Constitutional: denies: fever, chills, sweats, weakness, malaise, other Eyes: denies: pain, vision change, conjunctivae inflammation, eyelid inflammation, redness, other ENT: denies: ear pain, ear discharge, nose pain, nose discharge, nose congestion, mouth pain, mouth swelling, throat pain, throat swelling, other Respiratory: reports: shortness of breath. denies: cough, dry, hemoptysis, SOB with excertion, pleuritic pain, sputum, wheezing, other Cardiovascular: denies: chest pain, palpitations, orthopnea, paroxysmal noc. dyspnea, edema, light headedness, other Gastrointestinal: denies: nausea, vomiting, abdominal pain, diarrhea, constipation, melena, hematochezia, other Genitourinary: denies: dysuria, frequency, incontinence, hematuria, retention, other Musculoskeletal: denies: neck pain, shoulder pain, arm pain, back pain, hand pain, leg pain, foot pain, other Skin: denies: rash, lesions, jacob, bruising, other Neurological: denies: weakness, numbness, incoordination, change in speech, confusion, seizures, other - Medication Medications: Active Medications Generic Name Dose Route Start Last Admin Trade Name Freq PRN Reason Stop Dose Admin Aspirin 81 mg 06/30/20 09:00 06/30/20 11:41 Aspirin 81 Mg Enteric Coated Tablet PO 81 mg DAILY YESICA Administration Enoxaparin Sodium 40 mg 06/30/20 09:00 06/30/20 11:41 Enoxaparin Sodium 40 Mg/0.4 Ml Syringe SC 40 mg 0900 YESICA Administration Furosemide 20 mg 06/30/20 06:00 06/30/20 06:07 Furosemide 20 Mg/2 Ml Vial SLOW IVP 20 mg 0600,1400 YESICA Administration Lisinopril 5 mg 06/30/20 09:00 06/30/20 11:42 Lisinopril 5 Mg Tab PO 5 mg DAILY YESICA Administration Metoprolol Succinate 50 mg 06/30/20 09:00 06/30/20 11:42 Metoprolol Succinate Xl 50 Mg Tab PO 50 mg DAILY YESICA Administration - Exam General Appearance: NAD, awake alert Eye: PERRL, anicteric sclera ENT: normocephalic atraumatic, no oropharyngeal lesions Neck: supple, symmetric, no JVD, no thyromegaly Heart: RRR, no murmur, no gallops, no rubs Respiratory: CTAB, no wheezes, no rales, no ronchi Gastrointestinal: soft, non-tender, non-distended, normal bowel sounds Extremities: no cyanosis, no clubbing, no edema Skin: normal turgor, no lesions, no rashes Neurological: cranial nerve grossly intact, no focal deficits Musculoskeletal: normal strength, no muscle wasting Psychiatric: normal affect, normal behavior, A&O x 3 Hosp A/P (1) CAD (coronary artery disease) Code(s): I25.10 - ATHSCL HEART DISEASE OF [place] CORONARY ARTERY W/O ANG PCTRS Status: Acute Plan: Mildly elevated troponins, may be due to Type 2 DC. Will await cardiac eval and further recs. (2) HTN (hypertension) Code(s): I10 - ESSENTIAL (PRIMARY) HYPERTENSION Status: Acute Qualifiers: Hypertension type: essential hypertension Qualified Code(s): I10 - Essential (primary) hypertension Plan: Controlled, cont current BP meds. (3) Heart failure Code(s): I50.9 - HEART FAILURE, UNSPECIFIED Status: Acute Plan: Awaiting Echo results. Improved w Lasix so far. Ciont med mgt. (4) History of CVA (cerebrovascular accident) Code(s): Z86.73 - PRSNL HX OF TIA (TIA), AND CEREB INFRC W/O RESID DEFICITS Status: Acute Plan: Stable, no new issues. Cont med mgt. (5) Smoker Code(s): F17.200 - NICOTINE DEPENDENCE, UNSPECIFIED, UNCOMPLICATED Status: Acute Plan: Has been counseled. (6) SHA (acute kidney injury) Code(s): N17.9 - ACUTE KIDNEY FAILURE, UNSPECIFIED Status: Acute Plan: Slight elevation in Cr. Monitor for now. - Plan DVT proph w/heparin PPx: SCDs. CODE: FULL. Dispo: Cont current mgt. Await cardiac eval and Echo results.
[2020-06-30] MEDS ORDERED: Atorvastatin Calcium 40 MG TAB PO SCH (21:00)
--- NOTE | 2020-06-30 21:40 | CON ---
DATE OF CONSULTATION: REFERRING DOCTOR: Dr. Luis العلي. HISTORY OF PRESENT ILLNESS: The patient is a 64-year-old woman who presents for evaluation of dyspnea. The patient has a long history of coronary artery disease. She has previously undergone several PCIs and stent placements. The patient also has peripheral vascular disease and has undergone stent placement to her right extremity. The patient presented dyspneic and she was noted to be markedly hypertensive. The patient denied having any chest discomfort. The patient denies having any headaches. The patient states she has been compliant with her medications. The patient denies having any PND or orthopnea. PAST MEDICAL HISTORY: 1. Coronary artery disease. 2. Hypertension. 3. Dyslipidemia. 4. Cerebrovascular accident. PAST SURGICAL HISTORY: Appendectomy, and hysterectomy. SOCIAL HISTORY: Long history of tobacco abuse. FAMILY HISTORY: Positive for family history of coronary artery disease. MEDICATIONS: See nursing list. ALLERGIES: DOXYCYCLINE, PENICILLIN. PHYSICAL EXAMINATION: GENERAL: This is a well-developed woman, in no acute distress. VITAL SIGNS: With a blood pressure of 145/74. NECK: No jugular venous distention. LUNGS: Clear to auscultation. HEART: Regular rate and rhythm. Normal S1, S2, with a 2/6 systolic murmur. ABDOMEN: Nondistended. EXTREMITIES: Showed no edema. There are diminished pulses bilateral. LABORATORY RESULTS: White blood cell count of 5.8, hemoglobin 14.4, hematocrit 42.7, platelets were 198. Sodium is 143, potassium 4.1, chloride 103, bicarbonate 29, BUN 21, creatinine is 2.14. Triglycerides were 190, LDL 40, HDL 39. EKG normal sinus rhythm with left ventricular hypertrophy. IMPRESSION: 1. Malignant hypertension. 2. History of cerebrovascular accident. 3. History of coronary artery disease. 4. History of peripheral vascular disease. 5. Dyslipidemia. This patient presents with hypertensive crisis. She states she has been compliant with her medications. From a cardiac standpoint, her echocardiogram reveals severe left ventricular hypertrophy. It is imperative this patient have improved control of hypertension. We will follow this patient with you through her hospitalization. Job ID: [id number] [id number]
[2020-07-01 12:58] LABS: SARS-CoV-2 MS2 Positive; SARS-CoV-2 N Gene Negative; SARS-CoV-2 S Gene Negative; SARS-CoV-2 by NAA Not Detected (NotDetected); SARS-CoV-2 orf1ab Negative
== END 2020-06-30 19:06 | disposition home or self-care (01) ==
LOC: ERS 00:36 → ERHOLD 01:23
PROVIDERS: ADMIT Internal Medicine; ATTEND Internal Medicine
DX: I11.0 Hypertensive heart disease with heart failure (principal); I50.9 Heart failure, unspecified; I25.10 Atherosclerotic heart disease of native coronary artery without angina pectoris; N17.9 Acute kidney failure, unspecified; E78.5 Hyperlipidemia, unspecified; F17.210 Nicotine dependence, cigarettes, uncomplicated; Z79.82 Long term (current) use of aspirin; Z79.899 Other long term (current) drug therapy; Z86.73 Personal history of transient ischemic attack (TIA), and cerebral infarction without residual deficits; Z86.79 Personal history of other diseases of the circulatory system; Z88.0 Allergy status to penicillin; Z88.1 Allergy status to other antibiotic agents; Z95.5 Presence of coronary angioplasty implant and graft; Z20.828 Contact with and (suspected) exposure to other viral communicable diseases
CPT/HCPCS: 80061; 83036; 83735; 84484 ×2; 93005; 93306; 99285; U0003; 36415; 80053; 84443; 85025; 87635; J1650; J1940

== ENCOUNTER 2020-11-06 13:27 | Emergency (ER) | payer MEDICARE ==
[2020-11-06 14:39] LABS: #Basophils 0.1 thou/uL (0.0-0.2); #Eosinphils 0.2 thou/uL (0.0-0.7); #Lymphocytes 1.7 thou/uL (1.20-3.40); #Monocytes 0.7 thou/uL (0.11-0.59); %Basophils 0.9 % (0.0-1.0); %Eosinophils 3.5 % (0.0-10.0); %Lymphocytes 25.7 % (21.0-51.0); %Neutrophils 59.8 % (42.0-75.0); Hemoglobin 15.5 g/dL (12.0-16.0); Mean Corpuscular HGB CONC 32.6 g/dL (32.0-36.0); Mean Corpuscular Hemoglobin 30.1 pg (27.0-31.0); Mean Corpuscular Volume 92.1 fL (78.0-98.0); Mean Platelet Volume 9.6 fL (7.4-10.4); Platelet Count 165 thou/uL (130-400); RBC Distribution Width 13.6 % (11.5-14.5); Red Blood Cell (RBC) Count 5.16 mill/uL (4.20-5.40); White Blood Cell (WBC) Count 6.7 thou/uL (4.8-10.8)
[2020-11-06 14:50] LABS: ALT (SGPT) 15 U/L (8-55); AST (SGOT) 20 U/L (5-34); Albumin 3.8 g/dL (3.4-4.8); Alkaline Phosphatase 103 U/L (40-110); Anion Gap 16 mmol/L (10-20); BUN (Urea Nitrogen) 26 mg/dL (9.8-20.1); Bilirubin, Total 0.5 mg/dL (0.2-1.2); Calc. Creatinine Clearance 0 mL/min (70-130); Calcium 9.3 mg/dL (7.8-10.44); Carbon Dioxide 25 mmol/L (23-31); Chloride 105 mmol/L (98-107); Globulin 2.4 g/dL (2.4-3.5); Glucose 97 mg/dL (80-115); Protein, Total 6.2 g/dL (5.8-8.1); Sodium 142 mmol/L (136-145)
== END 2020-11-06 20:12 | disposition home or self-care (01) ==
LOC: ERS 13:27
DX: I73.9 Peripheral vascular disease, unspecified (principal); K21.9 Gastro-esophageal reflux disease without esophagitis; I10 Essential (primary) hypertension; F17.210 Nicotine dependence, cigarettes, uncomplicated; Z79.899 Other long term (current) drug therapy; M79.604 Pain in right leg
CPT/HCPCS: 36415; 80053; 85025; 85652; 86140

== ENCOUNTER 2021-01-16 23:50 | Inpatient (IN) | payer MEDICARE ==
[2021-01-17] MEDS ORDERED: Clopidogrel Bisulfate 300 MG TAB ONE (00:23)
[2021-01-17 00:35] LABS: #Eosinphils 0.2 thou/uL (0.0-0.7); #Lymphocytes 1.2 thou/uL (1.20-3.40); #Monocytes 0.5 thou/uL (0.11-0.59); #Neutrophils 4.6 thou/uL (1.40-6.50); %Basophils 0.4 % (0.0-1.0); %Eosinophils 2.5 % (0.0-10.0); %Lymphocytes 18.3 % (21.0-51.0); %Monocytes 8.1 % (0.0-10.0); %Neutrophils 70.7 % (42.0-75.0); Hemoglobin 14.5 g/dL (12.0-16.0); Mean Corpuscular HGB CONC 33.1 g/dL (32.0-36.0); Mean Corpuscular Hemoglobin 30.5 pg (27.0-31.0); Mean Corpuscular Volume 92.1 fL (78.0-98.0); Mean Platelet Volume 9.4 fL (7.4-10.4); Platelet Count 177 thou/uL (130-400); RBC Distribution Width 14.5 % (11.5-14.5); Red Blood Cell (RBC) Count 4.76 mill/uL (4.20-5.40); White Blood Cell (WBC) Count 6.5 thou/uL (4.8-10.8)
[2021-01-17 00:58] LABS: Acetaminophen Less than 6.0 mcg/mL (10.0-30.0); Alcohol Less than 10 mg/dL (Less than 10); Salicylate Less than 8.0 mg/dL (15.0-30.0)
[2021-01-17 01:17] LABS: CKMB 4.6 ng/mL (0-6.6)
[2021-01-17 02:10] LABS: Bacteria/HPF None Seen HPF (None Seen); Bilirubin Negative (Negative); Blood, Urine Negative (Negative); Clarity Clear (Clear); Glucose, Urine (Dipstick) Normal (Negative); Ketone, Urine Negative (Negative); Leukocyte 250 Leu/uL (Negative); Nitrite Negative (Negative); Protein, Urine (Dipstick) Negative (Neg-Trace); RBC/HPF 0-3 HPF (0-3); Specific Gravity, Urine 1.016 (1.002-1.036); Squamous Epithelial None Seen HPF (0-3); Urobilinogen Normal mg/dL (Less than 2); pH, Urine 5.5 (5.0-9.0)
[2021-01-17 02:16] LABS: Amphetamine Detected (NotDetected); Barbiturates Screen Not Detected (NotDetected); Benzodiazepine Screen Not Detected (NotDetected); Cocaine Metabolite Screen Not Detected (NotDetected); Medtox Control Line Valid? VALID (VALID); Medtox Reader # READER 4; Methadone Not Detected (NotDetected); Methamphetamine Detected (NotDetected); Opiate Screen Not Detected (NotDetected); Oxycodone Screen Not Detected (NotDetected); Phencyclidine (PCP) Not Detected (NotDetected); THC/Cannabinoid Screen Not Detected (NotDetected); Tricyclic Screen Not Detected (NotDetected)
[2021-01-17 02:24] LABS: ALT (SGPT) 15 U/L (8-55); AST (SGOT) 19 U/L (5-34); Albumin 3.6 g/dL (3.4-4.8); Alkaline Phosphatase 112 U/L (40-110); BUN (Urea Nitrogen) 32 mg/dL (9.8-20.1); Bilirubin, Total 0.5 mg/dL (0.2-1.2); Calc. Creatinine Clearance 0 mL/min (70-130); Carbon Dioxide 23 mmol/L (23-31); Globulin 2.5 g/dL (2.4-3.5); Glucose 94 mg/dL (80-115); Protein, Total 6.1 g/dL (5.8-8.1)
[2021-01-17 02:59] LABS: Chloride 106 mmol/L (98-107); Potassium 4.1 mmol/L (3.5-5.1); Sodium 141 mmol/L (136-145)
[2021-01-17 03:22] LABS: Anion Gap 16 mmol/L (10-20)
[2021-01-17] MEDS ORDERED: Ondansetron PF 4 MG/2 ML Vial IVP PRN (03:30)
[2021-01-17] MEDS ORDERED: Ondansetron ODT 4 MG TAB SL PRN (03:30)
[2021-01-17] MEDS ORDERED: Acetaminophen 325 MG TAB PO PRN (03:30)
[2021-01-17 04:34] LABS: SARS-CoV-2 NAA Rapid Test Not Detected (NotDetected)
[2021-01-17 04:54] LABS: Troponin I 0.046 ng/mL (< 0.028)
[2021-01-17] MEDS ORDERED: hydrALAZINE 20 MG/ML VIAL SLOW IVP PRN (05:04)
[2021-01-17] MEDS ORDERED: Lactated Ringer's 1,000 ML IV SCH (05:45)
[2021-01-17] MEDS ORDERED: cefTRIAXone\\ROCEPHIN 1 GM VIAL ONE (06:11)
[2021-01-17] MEDS: Sodium Chloride 0.9% 1,000 ML IV SCH ×2 (06:23→20:09)
[2021-01-17] MEDS: cefTRIAXone\\ROCEPHIN 1 GM in Sodium Chloride 0.9% 100 ML IVPB SCH (06:23)
[2021-01-17 06:36] LABS: Hemoglobin A1c 4.9 % (4.0-6.0)
[2021-01-17 06:52] LABS: Troponin I 0.049 ng/mL (< 0.028)
[2021-01-17] MEDS ORDERED: Enoxaparin Sodium 30 MG/0.3 ML SYRINGE ONE (09:18)
[2021-01-17] MEDS ORDERED: Clopidogrel Bisulfate 75 MG TAB ONE (09:21)
[2021-01-17] MEDS: Enoxaparin Sodium 30 MG/0.3 ML SYRINGE SC SCH (09:31)
[2021-01-17 20:08] VITALS: BMI 19.1
[2021-01-17] MEDS: Atorvastatin Calcium 40 MG TAB PO SCH (20:09)
[2021-01-18 05:26] LABS: #Eosinphils 0.2 thou/uL (0.0-0.7); #Lymphocytes 1.1 thou/uL (1.20-3.40); #Monocytes 0.6 thou/uL (0.11-0.59); #Neutrophils 2.8 thou/uL (1.40-6.50); %Basophils 0.9 % (0.0-1.0); %Eosinophils 4.4 % (0.0-10.0); %Lymphocytes 23.6 % (21.0-51.0); %Monocytes 13.4 % (0.0-10.0); %Neutrophils 57.7 % (42.0-75.0); Hemoglobin 14.7 g/dL (12.0-16.0); Mean Corpuscular HGB CONC 32.5 g/dL (32.0-36.0); Mean Corpuscular Volume 92.4 fL (78.0-98.0); Mean Platelet Volume 9.2 fL (7.4-10.4); Platelet Count 156 thou/uL (130-400); RBC Distribution Width 14.6 % (11.5-14.5); Red Blood Cell (RBC) Count 4.89 mill/uL (4.20-5.40); White Blood Cell (WBC) Count 4.8 thou/uL (4.8-10.8)
[2021-01-18 05:44] LABS: Anion Gap 12 mmol/L (10-20); BUN (Urea Nitrogen) 23 mg/dL (9.8-20.1); Calc. Creatinine Clearance 42 mL/min (70-130); Calcium 8.5 mg/dL (7.8-10.44); Carbon Dioxide 24 mmol/L (23-31); Chloride 110 mmol/L (98-107); Glucose 95 mg/dL (80-115); Potassium 4.1 mmol/L (3.5-5.1); Sodium 142 mmol/L (136-145)
[2021-01-18] MEDS: cefTRIAXone\\ROCEPHIN 1 GM in Sodium Chloride 0.9% 100 ML IVPB SCH (06:16)
[2021-01-18] MEDS ORDERED: Lactated Ringer's 500 ML IV SCH (08:30)
[2021-01-18] MEDS: Enoxaparin Sodium 30 MG/0.3 ML SYRINGE SC SCH (09:17)
[2021-01-18] MEDS: NIFEdipine XL 30 MG TAB PO SCH (09:17)
[2021-01-18] MEDS: Clopidogrel Bisulfate 75 MG TAB PO SCH (09:17)
[2021-01-18] MEDS ORDERED: Morphine 2 MG/ML VIAL SLOW IVP SCH (10:45)
[2021-01-18] MEDS ORDERED: Lorazepam 2 MG/ML VIAL SLOW IVP SCH (15:30)
[2021-01-18] MEDS: Atorvastatin Calcium 40 MG TAB PO SCH (21:34)
[2021-01-19] MEDS: cefTRIAXone\\ROCEPHIN 1 GM in Sodium Chloride 0.9% 100 ML IVPB SCH (05:28)
[2021-01-19] MEDS: Clopidogrel Bisulfate 75 MG TAB PO SCH (09:08)
[2021-01-19] MEDS: Enoxaparin Sodium 30 MG/0.3 ML SYRINGE SC SCH (09:08)
[2021-01-19] MEDS: NIFEdipine XL 30 MG TAB PO SCH (09:46)
[2021-01-19] MEDS: Atorvastatin Calcium 40 MG TAB PO SCH (22:22)
[2021-01-20] MEDS ORDERED: Lorazepam 2 MG/ML VIAL SLOW IVP SCH (01:45)
[2021-01-20] MEDS: Enoxaparin Sodium 30 MG/0.3 ML SYRINGE SC SCH (08:26)
[2021-01-20] MEDS: Clopidogrel Bisulfate 75 MG TAB PO SCH (08:27)
[2021-01-20] MEDS: Polyethylene Glycol 3350 17 GM Packet PO SCH (08:27)
[2021-01-20] MEDS: Atorvastatin Calcium 40 MG TAB PO SCH (20:20)
[2021-01-21] MEDS: Enoxaparin Sodium 30 MG/0.3 ML SYRINGE SC SCH (09:12)
[2021-01-21] MEDS: Clopidogrel Bisulfate 75 MG TAB PO SCH (09:12)
[2021-01-21] MEDS: Polyethylene Glycol 3350 17 GM Packet PO SCH (09:12)
[2021-01-21] MEDS ORDERED: Sodium Chloride 0.9% 500 ML IV SCH ×3 (12:45→16:45)
[2021-01-21 20:33] LABS: Lactic Acid 1.2 mmol/L (0.5-2.2)
[2021-01-21] MEDS: Atorvastatin Calcium 40 MG TAB PO SCH (20:56)
[2021-01-22] MEDS: Polyethylene Glycol 3350 17 GM Packet PO SCH (07:55)
[2021-01-22] MEDS: Clopidogrel Bisulfate 75 MG TAB PO SCH (07:55)
[2021-01-22] MEDS: Enoxaparin Sodium 30 MG/0.3 ML SYRINGE SC SCH ×2 (07:55→08:01)
[2021-01-22] MEDS: Atorvastatin Calcium 40 MG TAB PO SCH (22:00)
[2021-01-23] MEDS: Polyethylene Glycol 3350 17 GM Packet PO SCH (07:33)
[2021-01-23] MEDS: Clopidogrel Bisulfate 75 MG TAB PO SCH (07:33)
[2021-01-23] MEDS: Enoxaparin Sodium 30 MG/0.3 ML SYRINGE SC SCH (07:34)
[2021-01-23] MEDS: Atorvastatin Calcium 40 MG TAB PO SCH (19:57)
[2021-01-23 20:55] VITALS: BP 143/91; TEMP 97.8
== END 2021-01-23 20:20 | disposition home or self-care (01) | DRG 314 ==
LOC: ERS 23:50 → ERHOLD 01-17 02:16 → 2SW 01-17 15:51 → OBSVTOIN 01-19 17:55
PROVIDERS: ADMIT Internal Medicine; ATTEND Emergency Medicine
DX: I42.1 Obstructive hypertrophic cardiomyopathy (principal); G92 Toxic encephalopathy; G45.9 Transient cerebral ischemic attack, unspecified; I13.0 Hypertensive heart and chronic kidney disease with heart failure and stage 1 through stage 4 chronic kidney disease, or unspecified chronic kidney disease; I50.32 Chronic diastolic (congestive) heart failure; N39.0 Urinary tract infection, site not specified; I69.351 Hemiplegia and hemiparesis following cerebral infarction affecting right dominant side; N17.9 Acute kidney failure, unspecified; I25.10 Atherosclerotic heart disease of native coronary artery without angina pectoris; R77.8 Other specified abnormalities of plasma proteins; E78.5 Hyperlipidemia, unspecified; I95.1 Orthostatic hypotension; F15.10 Other stimulant abuse, uncomplicated; F17.200 Nicotine dependence, unspecified, uncomplicated; Z20.822 Contact with and (suspected) exposure to COVID-19; T43.625A Adverse effect of amphetamines, initial encounter; N18.30 Chronic kidney disease, stage 3 unspecified; Z88.0 Allergy status to penicillin; Z88.1 Allergy status to other antibiotic agents; Z79.899 Other long term (current) drug therapy; Z95.5 Presence of coronary angioplasty implant and graft; Z71.51 Drug abuse counseling and surveillance of drug abuser
CPT/HCPCS: 36415; 70450; 70551; 72125; 74018; 80048; 80053; 80061; 80306; 80307; 81003; 81015; 82140; 82550; 82553; 83036; 83605; 84443; 84484; 85025; 87086; 93005; 93306; 93880; 95816; 95819; 95957; 96372; 96374; 96375; 96376; G0378; J0696; J1650; J2060; J2270; J3490; U0002

== ENCOUNTER 2022-06-13 13:51 | Inpatient (IN) | payer MEDICARE ==
[2022-06-13] MEDS ORDERED: Morphine 4 MG/ML VIAL ONE ×2 (14:47→18:12)
[2022-06-13 14:51] LABS: #Basophils 0.1 thou/uL (0.0-0.2); #Eosinphils 0.3 thou/uL (0.0-0.7); #Lymphocytes 0.9 thou/uL (1.20-3.40); #Monocytes 0.7 thou/uL (0.11-0.59); #Neutrophils 6.9 thou/uL (1.40-6.50); %Basophils 0.9 % (0.0-1.0); %Lymphocytes 10.2 % (21.0-51.0); %Monocytes 7.4 % (0.0-10.0); %Neutrophils 78.5 % (42.0-75.0); Hemoglobin 16.1 g/dL (12.0-16.0); Mean Corpuscular HGB CONC 30.7 g/dL (32.0-36.0); Mean Corpuscular Volume 94.4 fL (78.0-98.0); Mean Platelet Volume 9.6 fL (7.4-10.4); Platelet Count 172 thou/uL (130-400); RBC Distribution Width 15.8 % (11.5-14.5); Red Blood Cell (RBC) Count 5.57 mill/uL (4.20-5.40); White Blood Cell (WBC) Count 8.8 thou/uL (4.8-10.8)
[2022-06-13 15:13] LABS: ALT (SGPT) 21 U/L (8-55); AST (SGOT) 21 U/L (5-34); Albumin 3.6 g/dL (3.4-4.8); Alkaline Phosphatase 97 U/L (40-110); Anion Gap 16 mmol/L (10-20); BUN (Urea Nitrogen) 27 mg/dL (9.8-20.1); Bilirubin, Total 0.6 mg/dL (0.2-1.2); Calc. Creatinine Clearance 0 mL/min (70-130); Calcium 8.3 mg/dL (7.8-10.44); Carbon Dioxide 24 mmol/L (23-31); Chloride 106 mmol/L (98-107); Estimated GFR 46; Globulin 2.3 g/dL (2.4-3.5); Glucose 109 mg/dL (80-115); Potassium 4.5 mmol/L (3.5-5.1); Protein, Total 5.9 g/dL (5.8-8.1); Sodium 141 mmol/L (136-145)
[2022-06-13] MEDS ORDERED: Ketorolac Tromethamine 30 MG/ML VIAL ONE (15:16)
[2022-06-13] MEDS ORDERED: Aspirin Chewable 81 MG TAB ONE (15:28)
[2022-06-13 15:35] LABS: CKMB 3.1 ng/mL (0-6.6)
[2022-06-13] MEDS ORDERED: Sodium Chloride 0.9% 1,000 ML IV SCH (18:30)
[2022-06-13 18:36] LABS: Troponin I 0.027 ng/mL (< 0.028)
[2022-06-13 21:32] VITALS: BMI 20.1
[2022-06-13 21:36] LABS: Troponin I 0.025 ng/mL (< 0.028)
[2022-06-13] MEDS ORDERED: Sodium Chloride 0.9% 500 ML IV SCH (22:00)
[2022-06-13] MEDS: Atorvastatin Calcium 40 MG TAB PO SCH (22:28)
[2022-06-13] MEDS: Morphine 2 MG/ML VIAL SLOW IVP PRN (22:51)
[2022-06-14 01:54] LABS: Amphetamine Detected (NotDetected); Barbiturates Screen Not Detected (NotDetected); Benzodiazepine Screen Not Detected (NotDetected); Cocaine Metabolite Screen Not Detected (NotDetected); Methadone Not Detected (NotDetected); Methamphetamine Detected (NotDetected); Opiate Screen Detected (NotDetected); Oxycodone Screen Not Detected (NotDetected); Phencyclidine (PCP) Not Detected (NotDetected); THC/Cannabinoid Screen Not Detected (NotDetected); Tricyclic Screen Not Detected (NotDetected)
[2022-06-14] MEDS: HYDROcodone/Acetaminophen 5/325 mg Tablet PO PRN ×3 (02:03→20:30)
[2022-06-14 04:46] LABS: Anion Gap 16 mmol/L (10-20); BUN (Urea Nitrogen) 26 mg/dL (9.8-20.1); Calc. Creatinine Clearance 35 mL/min (70-130); Calcium 8.2 mg/dL (7.8-10.44); Carbon Dioxide 20 mmol/L (23-31); Chloride 106 mmol/L (98-107); Estimated GFR 47; Glucose 88 mg/dL (80-115); Potassium 5.1 mmol/L (3.5-5.1); Sodium 137 mmol/L (136-145)
[2022-06-14 04:47] LABS: #Basophils 0.1 thou/uL (0.0-0.2); #Eosinphils 0.2 thou/uL (0.0-0.7); #Lymphocytes 1.2 thou/uL (1.20-3.40); #Neutrophils 4.6 thou/uL (1.40-6.50); %Basophils 0.8 % (0.0-1.0); %Eosinophils 3.2 % (0.0-10.0); %Lymphocytes 16.8 % (21.0-51.0); %Monocytes 13.7 % (0.0-10.0); %Neutrophils 65.4 % (42.0-75.0); Hemoglobin 14.4 g/dL (12.0-16.0); Mean Corpuscular HGB CONC 30.1 g/dL (32.0-36.0); Mean Corpuscular Hemoglobin 29.3 pg (27.0-31.0); Mean Corpuscular Volume 97.4 fL (78.0-98.0); Mean Platelet Volume 9.7 fL (7.4-10.4); Platelet Count 165 thou/uL (130-400); RBC Distribution Width 15.6 % (11.5-14.5); Red Blood Cell (RBC) Count 4.92 mill/uL (4.20-5.40)
[2022-06-14] MEDS: Aspirin 81 mg Enteric Coated Tablet PO SCH (08:01)
[2022-06-14] MEDS: Morphine 2 MG/ML VIAL SLOW IVP PRN (15:40)
[2022-06-14] MEDS ORDERED: Enoxaparin Sodium 40 MG/0.4 ML SYRINGE SC SCH (18:00)
[2022-06-14] MEDS: Atorvastatin Calcium 40 MG TAB PO SCH (20:29)
[2022-06-15] MEDS: Morphine 2 MG/ML VIAL SLOW IVP PRN ×2 (01:09→11:24)
[2022-06-15] MEDS: HYDROcodone/Acetaminophen 5/325 mg Tablet PO PRN ×2 (04:46→17:03)
[2022-06-15 08:14] LABS: Anion Gap 11 mmol/L (10-20); BUN (Urea Nitrogen) 16 mg/dL (9.8-20.1); Calc. Creatinine Clearance 43 mL/min (70-130); Calcium 8.6 mg/dL (7.8-10.44); Carbon Dioxide 31 mmol/L (23-31); Chloride 102 mmol/L (98-107); Estimated GFR 60; Glucose 95 mg/dL (80-115); Potassium 3.9 mmol/L (3.5-5.1); Sodium 140 mmol/L (136-145)
[2022-06-15] MEDS: Aspirin 81 mg Enteric Coated Tablet PO SCH (08:54)
[2022-06-15] MEDS: Acetaminophen 325 MG TAB PO PRN ×2 (08:54→14:45)
[2022-06-15 12:55] VITALS: BP 198/95; TEMP 97.6
[2022-06-16] MEDS ORDERED: FLU VACC QS2022-23(65YR UP)/PF 240 MCG/0.7 ML SYRINGE IM ONE (09:00)
== END 2022-06-15 17:15 | disposition home health service (06) | DRG 563 ==
LOC: ERS 13:51 → 2NO 17:30 → OBSVTOIN 06-15 11:37
PROVIDERS: ADMIT Internal Medicine; ATTEND Family Medicine
DX: S42.001A Fracture of unspecified part of right clavicle, initial encounter for closed fracture (principal); N17.9 Acute kidney failure, unspecified; Z91.81 History of falling; Z86.73 Personal history of transient ischemic attack (TIA), and cerebral infarction without residual deficits; I25.10 Atherosclerotic heart disease of native coronary artery without angina pectoris; Z90.710 Acquired absence of both cervix and uterus; Z88.1 Allergy status to other antibiotic agents; Z88.5 Allergy status to narcotic agent; Z88.0 Allergy status to penicillin; F17.210 Nicotine dependence, cigarettes, uncomplicated; M21.921 Unspecified acquired deformity of right upper arm; I12.9 Hypertensive chronic kidney disease with stage 1 through stage 4 chronic kidney disease, or unspecified chronic kidney disease; N18.30 Chronic kidney disease, stage 3 unspecified; Z95.5 Presence of coronary angioplasty implant and graft; W18.30XA Fall on same level, unspecified, initial encounter; I73.9 Peripheral vascular disease, unspecified; Z20.822 Contact with and (suspected) exposure to COVID-19
CPT/HCPCS: 36415; 70450; 72125; 72128; 72131; 80048; 80053; 80306; 82553; 84443; 84484; 85025; 93005; 93010; 93306; 94760; 95816; 95819; 95957; 96374; 96375; 96376; J1650; J1885; J2270; J7030; J7050; U0003; U0005

== ENCOUNTER 2022-07-13 05:56 | Inpatient (IN) | payer MEDICARE ==
[2022-07-13] MEDS ORDERED: Pantoprazole 40 MG VIAL ONE (07:14)
[2022-07-13 07:16] LABS: #Eosinphils 0.2 thou/uL (0.0-0.7); #Monocytes 0.7 thou/uL (0.11-0.59); #Neutrophils 6.4 thou/uL (1.40-6.50); %Basophils 0.1 % (0.0-1.0); %Eosinophils 2.6 % (0.0-10.0); %Lymphocytes 12.2 % (21.0-51.0); %Monocytes 7.8 % (0.0-10.0); %Neutrophils 77.3 % (42.0-75.0); Hemoglobin 13.4 g/dL (12.0-16.0); Mean Corpuscular Hemoglobin 30.3 pg (27.0-31.0); Mean Corpuscular Volume 94.7 fl (78.0-98.0); Mean Platelet Volume 10.5 fL (7.4-10.4); Platelet Count 130 10x3/uL (130-400); RBC Distribution Width 16.2 % (11.5-14.5); Red Blood Cell (RBC) Count 4.44 mill/uL (4.20-5.40); White Blood Cell (WBC) Count 8.3 10x3/uL (4.8-10.8)
[2022-07-13 07:21] LABS: Bilirubin Negative (Negative); Blood, Urine Negative (Negative); Clarity Clear (Clear); Glucose, Urine (Dipstick) Normal (Negative); Ketone, Urine Negative (Negative); Leukocyte Negative Leu/uL (Negative); Nitrite Negative (Negative); Protein, Urine (Dipstick) Negative (Neg-Trace); Specific Gravity, Urine 1.009 (1.002-1.036); Urobilinogen Normal mg/dL (Less than 2)
[2022-07-13 07:33] LABS: ALT (SGPT) 23 U/L (8-55); AST (SGOT) 25 U/L (5-34); Albumin 4.1 g/dL (3.4-4.8); Alkaline Phosphatase 96 U/L (40-110); Anion Gap 14 mmol/L (10-20); BUN (Urea Nitrogen) 49 mg/dL (9.8-20.1); Bilirubin, Total 0.6 mg/dL (0.2-1.2); Calc. Creatinine Clearance 0 mL/min (70-130); Calcium 9.2 mg/dL (7.8-10.44); Carbon Dioxide 28 mmol/L (23-31); Chloride 101 mmol/L (98-107); Estimated GFR 40; Globulin 2.8 g/dL (2.4-3.5); Glucose 87 mg/dL (80-115); Potassium 4.8 mmol/L (3.5-5.1); Protein, Total 6.9 g/dL (5.8-8.1); Sodium 138 mmol/L (136-145)
[2022-07-13 07:58] LABS: CKMB 3.9 ng/mL (0-6.6)
[2022-07-13 10:47] VITALS: BMI 17.5
[2022-07-13 11:24] LABS: Troponin I 0.045 ng/mL (< 0.028)
[2022-07-13] MEDS ORDERED: GoLYTELY 4,000 ml Bottle PO SCH (11:30)
[2022-07-13 14:09] LABS: Troponin I 0.049 ng/mL (< 0.028)
[2022-07-13] MEDS ORDERED: hydrOXYzine 25 MG TAB PO PRN (19:14)
[2022-07-13] MEDS: traMADol HCl 50 MG TAB PO PRN (21:35)
[2022-07-13] MEDS: Gabapentin 300 MG CAP PO SCH (22:03)
[2022-07-13] MEDS ORDERED: Albuterol 200 PUFF (6.7GM INHALER) INH SCH (22:30)
[2022-07-13] MEDS: Albuterol Sulfate 2.5 mg/3 ml Neb NEB SCH (23:45)
[2022-07-14 05:34] LABS: Anion Gap 14 mmol/L (10-20); BUN (Urea Nitrogen) 32 mg/dL (9.8-20.1); Calc. Creatinine Clearance 36 mL/min (70-130); Carbon Dioxide 28 mmol/L (23-31); Chloride 104 mmol/L (98-107); Estimated GFR 53; Glucose 85 mg/dL (80-115); Potassium 4.2 mmol/L (3.5-5.1); Sodium 142 mmol/L (136-145)
[2022-07-14 05:36] LABS: #Eosinphils 0.2 thou/uL (0.0-0.7); #Lymphocytes 0.9 thou/uL (1.20-3.40); #Monocytes 0.6 thou/uL (0.11-0.59); %Basophils 0.2 % (0.0-1.0); %Eosinophils 3.8 % (0.0-10.0); %Lymphocytes 15.3 % (21.0-51.0); %Monocytes 10.8 % (0.0-10.0); %Neutrophils 69.9 % (42.0-75.0); Hemoglobin 11.5 g/dL (12.0-16.0); Mean Corpuscular HGB CONC 31.6 g/dL (32.0-36.0); Mean Corpuscular Hemoglobin 30.6 pg (27.0-31.0); Mean Corpuscular Volume 96.7 fl (78.0-98.0); Mean Platelet Volume 9.9 fL (7.4-10.4); Platelet Count 111 10x3/uL (130-400); RBC Distribution Width 16.7 % (11.5-14.5); Red Blood Cell (RBC) Count 3.76 mill/uL (4.20-5.40); White Blood Cell (WBC) Count 5.8 10x3/uL (4.8-10.8)
[2022-07-14] MEDS: Albuterol Sulfate 2.5 mg/3 ml Neb NEB SCH ×3 (07:35→18:34)
[2022-07-14] MEDS: Sertraline 25 MG TAB PO SCH (08:43)
[2022-07-14] MEDS: Atorvastatin Calcium 40 MG TAB PO SCH (08:43)
[2022-07-14] MEDS: Gabapentin 300 MG CAP PO SCH ×2 (08:43→20:44)
[2022-07-14] MEDS ORDERED: Aspirin 81 mg Enteric Coated Tablet PO SCH (09:00)
[2022-07-14] MEDS ORDERED: Furosemide 40 MG TAB PO SCH (09:00)
[2022-07-14] MEDS ORDERED: Famotidine 20 MG TAB PO SCH (09:00)
[2022-07-14] MEDS ORDERED: GoLYTELY 4,000 ml Bottle PO SCH (20:00)
[2022-07-14] MEDS: GoLYTELY 4,000 ml Bottle PO SCH (20:43)
[2022-07-15] MEDS: Albuterol Sulfate 2.5 mg/3 ml Neb NEB SCH ×4 (02:18→18:16)
[2022-07-15] MEDS: GoLYTELY 4,000 ml Bottle PO SCH (03:27)
[2022-07-15 05:39] LABS: ALT (SGPT) 16 U/L (8-55); AST (SGOT) 16 U/L (5-34); Albumin 3.4 g/dL (3.4-4.8); Alkaline Phosphatase 78 U/L (40-110); Anion Gap 12 mmol/L (10-20); BUN (Urea Nitrogen) 26 mg/dL (9.8-20.1); Bilirubin, Total 1.4 mg/dL (0.2-1.2); Calc. Creatinine Clearance 38 mL/min (70-130); Carbon Dioxide 26 mmol/L (23-31); Chloride 102 mmol/L (98-107); Estimated GFR 56; Globulin 2.7 g/dL (2.4-3.5); Glucose 91 mg/dL (80-115); Potassium 3.9 mmol/L (3.5-5.1); Protein, Total 6.1 g/dL (5.8-8.1); Sodium 136 mmol/L (136-145)
[2022-07-15 05:48] LABS: #Eosinphils 0.2 thou/uL (0.0-0.7); #Lymphocytes 0.8 thou/uL (1.20-3.40); #Monocytes 0.6 thou/uL (0.11-0.59); #Neutrophils 3.7 thou/uL (1.40-6.50); %Basophils 0.4 % (0.0-1.0); %Eosinophils 3.5 % (0.0-10.0); %Lymphocytes 14.1 % (21.0-51.0); %Monocytes 11.5 % (0.0-10.0); %Neutrophils 70.4 % (42.0-75.0); Hemoglobin 10.6 g/dL (12.0-16.0); Mean Corpuscular HGB CONC 32.1 g/dL (32.0-36.0); Mean Corpuscular Hemoglobin 30.8 pg (27.0-31.0); Mean Corpuscular Volume 95.9 fl (78.0-98.0); Mean Platelet Volume 10.2 fL (7.4-10.4); Platelet Count 109 10x3/uL (130-400); Red Blood Cell (RBC) Count 3.43 mill/uL (4.20-5.40); White Blood Cell (WBC) Count 5.3 10x3/uL (4.8-10.8)
[2022-07-15] MEDS: Gabapentin 300 MG CAP PO SCH ×2 (08:24→20:44)
[2022-07-15] MEDS: Atorvastatin Calcium 40 MG TAB PO SCH (08:24)
[2022-07-15] MEDS: Sertraline 25 MG TAB PO SCH (08:25)
[2022-07-15] MEDS ORDERED: Pantoprazole 40 MG VIAL IVP SCH (09:00)
[2022-07-15] MEDS ORDERED: PROPOFOL 200 MG/20 ML VIAL ONE (11:00)
[2022-07-15] MEDS ORDERED: Esmolol 100 MG/10 ML VIAL ONE (11:00)
[2022-07-15] MEDS ORDERED: EPINEPHrine 1 MG/10 ML Abboject SYRINGE ONE (11:00)
[2022-07-15] MEDS ORDERED: Promethazine HCl 25 MG/ML VIAL IM PRN (12:28)
[2022-07-15] MEDS ORDERED: Ondansetron HCl/PF 4 MG/2 ML Vial IVP PRN (12:28)
[2022-07-15] MEDS ORDERED: Promethazine HCl 25 MG/ML VIAL IVPB PRN (12:28)
[2022-07-15 13:19] LABS: Hemoglobin 10.5 g/dL (12.0-16.0)
[2022-07-15] MEDS ORDERED: Morphine 4 MG/ML VIAL SLOW IVP SCH (14:45)
[2022-07-15] MEDS ORDERED: Lorazepam 2 MG/ML VIAL SLOW IVP SCH (16:45)
[2022-07-15] MEDS: Pantoprazole 40 MG VIAL IVP SCH (20:44)
[2022-07-15] MEDS: Morphine 4 MG/ML VIAL SLOW IVP PRN (22:32)
[2022-07-16] MEDS: Albuterol Sulfate 2.5 mg/3 ml Neb NEB SCH ×5 (01:17→23:42)
[2022-07-16 04:41] LABS: #Eosinphils 0.3 thou/uL (0.0-0.7); #Lymphocytes 0.9 thou/uL (1.20-3.40); #Monocytes 0.5 thou/uL (0.11-0.59); #Neutrophils 3.5 thou/uL (1.40-6.50); %Basophils 0.5 % (0.0-1.0); %Eosinophils 4.9 % (0.0-10.0); %Lymphocytes 17.8 % (21.0-51.0); %Monocytes 9.5 % (0.0-10.0); %Neutrophils 67.3 % (42.0-75.0); Mean Corpuscular HGB CONC 32.3 g/dL (32.0-36.0); Mean Corpuscular Hemoglobin 31.3 pg (27.0-31.0); Mean Platelet Volume 9.7 fL (7.4-10.4); Platelet Count 106 10x3/uL (130-400); RBC Distribution Width 16.9 % (11.5-14.5); Red Blood Cell (RBC) Count 3.19 mill/uL (4.20-5.40); White Blood Cell (WBC) Count 5.2 10x3/uL (4.8-10.8)
[2022-07-16 04:44] LABS: Anion Gap 9 mmol/L (10-20); BUN (Urea Nitrogen) 25 mg/dL (9.8-20.1); Calc. Creatinine Clearance 33 mL/min (70-130); Calcium 8.7 mg/dL (7.8-10.44); Carbon Dioxide 30 mmol/L (23-31); Chloride 106 mmol/L (98-107); Estimated GFR 47; Glucose 99 mg/dL (80-115); Potassium 4.4 mmol/L (3.5-5.1); Sodium 141 mmol/L (136-145)
[2022-07-16] MEDS: Atorvastatin Calcium 40 MG TAB PO SCH (09:32)
[2022-07-16] MEDS: Sertraline 25 MG TAB PO SCH (09:32)
[2022-07-16] MEDS: Gabapentin 300 MG CAP PO SCH ×2 (09:32→21:11)
[2022-07-16] MEDS: Pantoprazole 40 MG VIAL IVP SCH ×2 (09:32→21:12)
[2022-07-16] MEDS: traMADol HCl 50 MG TAB PO PRN (21:54)
[2022-07-17 00:09] LABS: Anion Gap 14 mmol/L (10-20); BUN (Urea Nitrogen) 18 mg/dL (9.8-20.1); Calc. Creatinine Clearance 34 mL/min (70-130); Carbon Dioxide 23 mmol/L (23-31); Chloride 106 mmol/L (98-107); Sodium 139 mmol/L (136-145)
[2022-07-17 00:10] LABS: Calcium 8.4 mg/dL (7.8-10.44); Estimated GFR 50; Glucose 137 mg/dL (80-115); Magnesium 1.7 mg/dL (1.6-2.6)
[2022-07-17 01:05] LABS: #Eosinphils 0.1 thou/uL (0.0-0.7); #Lymphocytes 0.3 thou/uL (1.20-3.40); #Monocytes 0.3 thou/uL (0.11-0.59); #Neutrophils 4.5 thou/uL (1.40-6.50); %Basophils 0.3 % (0.0-1.0); %Eosinophils 2.2 % (0.0-10.0); %Lymphocytes 5.3 % (21.0-51.0); %Monocytes 6.5 % (0.0-10.0); %Neutrophils 85.6 % (42.0-75.0); Hemoglobin 10.4 g/dL (12.0-16.0); Mean Corpuscular HGB CONC 32.8 g/dL (32.0-36.0); Mean Corpuscular Hemoglobin 31.7 pg (27.0-31.0); Mean Corpuscular Volume 96.7 fl (78.0-98.0); Mean Platelet Volume 9.7 fL (7.4-10.4); Platelet Count 109 10x3/uL (130-400); RBC Distribution Width 16.8 % (11.5-14.5); Red Blood Cell (RBC) Count 3.28 mill/uL (4.20-5.40); White Blood Cell (WBC) Count 5.2 10x3/uL (4.8-10.8)
[2022-07-17] MEDS ORDERED: Furosemide 20 MG/2 ML VIAL SLOW IVP SCH (01:45)
[2022-07-17] MEDS ORDERED: Acetaminophen 325 MG TAB PO SCH (03:45)
[2022-07-17 05:08] LABS: #Eosinphils 0.1 thou/uL (0.0-0.7); #Lymphocytes 0.2 thou/uL (1.20-3.40); #Monocytes 0.3 thou/uL (0.11-0.59); #Neutrophils 3.7 thou/uL (1.40-6.50); %Eosinophils 2.2 % (0.0-10.0); %Lymphocytes 5.6 % (21.0-51.0); %Monocytes 7.7 % (0.0-10.0); %Neutrophils 84.5 % (42.0-75.0); Hemoglobin 10.1 g/dL (12.0-16.0); Mean Corpuscular HGB CONC 33.2 g/dL (32.0-36.0); Mean Corpuscular Hemoglobin 31.6 pg (27.0-31.0); Mean Corpuscular Volume 95.4 fl (78.0-98.0); Mean Platelet Volume 9.6 fL (7.4-10.4); Platelet Count 111 10x3/uL (130-400); RBC Distribution Width 16.5 % (11.5-14.5); Red Blood Cell (RBC) Count 3.18 mill/uL (4.20-5.40); White Blood Cell (WBC) Count 4.3 10x3/uL (4.8-10.8)
[2022-07-17 05:17] LABS: Anion Gap 14 mmol/L (10-20); BUN (Urea Nitrogen) 16 mg/dL (9.8-20.1); Calc. Creatinine Clearance 32 mL/min (70-130); Calcium 8.5 mg/dL (7.8-10.44); Carbon Dioxide 24 mmol/L (23-31); Chloride 103 mmol/L (98-107); Estimated GFR 46; Glucose 120 mg/dL (80-115); Potassium 3.9 mmol/L (3.5-5.1); Sodium 137 mmol/L (136-145)
[2022-07-17] MEDS: Albuterol Sulfate 2.5 mg/3 ml Neb NEB SCH ×4 (07:55→23:52)
[2022-07-17] MEDS: Atorvastatin Calcium 40 MG TAB PO SCH (08:58)
[2022-07-17] MEDS: Gabapentin 300 MG CAP PO SCH ×2 (08:58→20:34)
[2022-07-17] MEDS: Sertraline 25 MG TAB PO SCH (08:58)
[2022-07-17] MEDS: Pantoprazole 40 MG VIAL IVP SCH ×2 (08:59→20:33)
[2022-07-17] MEDS ORDERED: Furosemide 20 MG TAB PO SCH (09:00)
[2022-07-17] MEDS ORDERED: Iopamidol-370 76% 500 ML 1 ML ONE (11:19)
[2022-07-17] MEDS ORDERED: Senokot 8.6 MG TAB PO PRN (12:42)
[2022-07-17] MEDS ORDERED: Furosemide 40 MG/4 ML VIAL SLOW IVP SCH (14:30)
[2022-07-17] MEDS ORDERED: Lorazepam 2 MG/ML VIAL SLOW IVP SCH (15:00)
[2022-07-17] MEDS ORDERED: Sodium Chloride 0.9% 500 ML IV SCH (16:00)
[2022-07-17 16:38] LABS: Actual Bicarbonate (HCO3a) 25.6 mEq/L (22-28); CO2 Tension 32.1 mmHg (35.0-45.0); Calcium, Ionized (arterial) 1.03 mmol/L (1.12-1.30); Carboxyhemoglobin (COHb) 0.5 gm% (0.0-3.0); Hemoglobin (Hb) 10.5 g/dL (12.0-16.0); Potassium - ABG Lab 3.34 mmol/L (3.70-5.30); pH, Arterial 7.52 (7.35-7.45)
[2022-07-17 16:43] LABS: O2 Tension (PaO2), arterial 54.5 mmHg (> 80.0)
[2022-07-17 16:44] LABS: ALV-art Gradient 162.055 mmHg (0-20); Puncture Site LBA
[2022-07-17] MEDS ORDERED: Sodium Chloride 0.9% 1,000 ML IV SCH (18:15)
[2022-07-17] MEDS ORDERED: Vancomycin 1 GM in Premix Bag 1 BAG IVPB SCH (18:30)
[2022-07-17 18:36] LABS: #Lymphocytes 0.1 thou/uL (1.20-3.40); #Monocytes 0.4 thou/uL (0.11-0.59); #Neutrophils 4.6 thou/uL (1.40-6.50); %Basophils 0.6 % (0.0-1.0); %Eosinophils 0.1 % (0.0-10.0); %Lymphocytes 2.6 % (21.0-51.0); %Monocytes 7.9 % (0.0-10.0); %Neutrophils 88.9 % (42.0-75.0); Hemoglobin 10.1 g/dL (12.0-16.0); Mean Corpuscular HGB CONC 31.3 g/dL (32.0-36.0); Mean Corpuscular Hemoglobin 30.4 pg (27.0-31.0); Mean Corpuscular Volume 97.3 fl (78.0-98.0); Mean Platelet Volume 9.5 fL (7.4-10.4); Platelet Count 117 10x3/uL (130-400); RBC Distribution Width 16.8 % (11.5-14.5); Red Blood Cell (RBC) Count 3.32 mill/uL (4.20-5.40); White Blood Cell (WBC) Count 5.1 10x3/uL (4.8-10.8)
[2022-07-17 18:46] LABS: Lactic Acid 2.8 mmol/L (0.5-2.2)
[2022-07-17 18:50] LABS: ALT (SGPT) 12 U/L (8-55); AST (SGOT) 21 U/L (5-34); Albumin 3.3 g/dL (3.4-4.8); Alkaline Phosphatase 64 U/L (40-110); Anion Gap 18 mmol/L (10-20); BUN (Urea Nitrogen) 15 mg/dL (9.8-20.1); Calc. Creatinine Clearance 26 mL/min (70-130); Calcium 8.2 mg/dL (7.8-10.44); Carbon Dioxide 23 mmol/L (23-31); Chloride 98 mmol/L (98-107); Estimated GFR 36; Globulin 2.8 g/dL (2.4-3.5); Glucose 94 mg/dL (80-115); Potassium 3.9 mmol/L (3.5-5.1); Protein, Total 6.1 g/dL (5.8-8.1); Sodium 135 mmol/L (136-145)
[2022-07-17] MEDS: NOREPINEPHRINE 8 MG/250 ML-D5W 250 ML IVPB SCH (20:33)
[2022-07-17] MEDS: Cefepime 2 GM in Sodium Chloride 0.9% 100 ML IVPB SCH (20:34)
[2022-07-17 22:01] LABS: Bilirubin Negative (Negative); Blood, Urine Negative (Negative); CAUTI Indications for Culture Fever or rigors; Clarity Clear (Clear); Glucose, Urine (Dipstick) Normal (Negative); Ketone, Urine Negative (Negative); Leukocyte Negative Leu/uL (Negative); Nitrite Negative (Negative); Protein, Urine (Dipstick) Negative (Neg-Trace); Specific Gravity, Urine 1.011 (1.002-1.036); Urobilinogen Normal mg/dL (Less than 2); pH, Urine 5.5 (5.0-9.0)
[2022-07-17 22:02] LABS: Bacteria/HPF None Seen HPF (None Seen); RBC/HPF None Seen HPF (0-3); Squamous Epithelial 0-3 HPF (0-3); WBC/HPF 0-3 HPF (0-3)
[2022-07-17 22:03] LABS: Urine Culture Reflex No No
[2022-07-18 04:38] LABS: #Lymphocytes 0.3 thou/uL (1.20-3.40); #Monocytes 0.5 thou/uL (0.11-0.59); #Neutrophils 4.3 thou/uL (1.40-6.50); %Basophils 0.1 % (0.0-1.0); %Eosinophils 0.1 % (0.0-10.0); %Lymphocytes 5.9 % (21.0-51.0); %Monocytes 9.3 % (0.0-10.0); %Neutrophils 84.5 % (42.0-75.0); Hemoglobin 9.2 g/dL (12.0-16.0); Mean Corpuscular HGB CONC 31.3 g/dL (32.0-36.0); Mean Corpuscular Hemoglobin 29.8 pg (27.0-31.0); Mean Corpuscular Volume 95.4 fl (78.0-98.0); Mean Platelet Volume 9.9 fL (7.4-10.4); Platelet Count 114 10x3/uL (130-400); Red Blood Cell (RBC) Count 3.09 mill/uL (4.20-5.40); White Blood Cell (WBC) Count 5.1 10x3/uL (4.8-10.8)
[2022-07-18 04:50] LABS: ALT (SGPT) 12 U/L (8-55); AST (SGOT) 37 U/L (5-34); Alkaline Phosphatase 63 U/L (40-110); Anion Gap 14 mmol/L (10-20); BUN (Urea Nitrogen) 20 mg/dL (9.8-20.1); Bilirubin, Total 0.8 mg/dL (0.2-1.2); Calc. Creatinine Clearance 27 mL/min (70-130); Calcium 7.8 mg/dL (7.8-10.44); Carbon Dioxide 25 mmol/L (23-31); Chloride 99 mmol/L (98-107); Estimated GFR 38; Globulin 2.6 g/dL (2.4-3.5); Glucose 92 mg/dL (80-115); Potassium 3.3 mmol/L (3.5-5.1); Protein, Total 5.6 g/dL (5.8-8.1); Sodium 135 mmol/L (136-145)
[2022-07-18 05:42] LABS: Magnesium 1.4 mg/dL (1.6-2.6)
[2022-07-18] MEDS: Acetaminophen 325 MG TAB PO PRN ×2 (06:16→21:19)
[2022-07-18] MEDS ORDERED: Digoxin 0.5 MG/2 ML AMP SLOW IVP SCH (06:30)
[2022-07-18] MEDS ORDERED: Magnesium 2 GM/50 ML(in water) 2 GM in Premix Bag 1 BAG IVPB SCH ×2 (06:45→12:30)
[2022-07-18] MEDS ORDERED: Diltiazem 125 MG in Sodium Chloride 0.9% 100 ML IVPB SCH (07:00)
[2022-07-18] MEDS ORDERED: Sodium Chloride 0.9% 500 ML IV SCH (07:00)
[2022-07-18 07:14] LABS: Lactic Acid 0.9 mmol/L (0.5-2.2)
[2022-07-18] MEDS: Albuterol Sulfate 2.5 mg/3 ml Neb NEB SCH ×3 (07:20→18:26)
[2022-07-18] MEDS ORDERED: Acetaminophen 325 MG TAB PO SCH (07:30)
[2022-07-18] MEDS ORDERED: Potassium Chloride 20 MEQ TAB PO SCH (08:00)
[2022-07-18] MEDS: Pantoprazole 40 MG VIAL IVP SCH ×2 (08:17→20:22)
[2022-07-18] MEDS: Cefepime 2 GM in Sodium Chloride 0.9% 100 ML IVPB SCH (08:17)
[2022-07-18] MEDS ORDERED: Ondansetron PF 4 MG/2 ML Vial IVP PRN (09:13)
[2022-07-18] MEDS: Sertraline 25 MG TAB PO SCH (09:21)
[2022-07-18] MEDS: Gabapentin 300 MG CAP PO SCH ×2 (09:21→20:21)
[2022-07-18] MEDS ORDERED: Electrolyte Replacement Protocol 1 EACH FS ONE (09:22)
[2022-07-18] MEDS: Atorvastatin Calcium 40 MG TAB PO SCH (09:22)
[2022-07-18] MEDS ORDERED: Electrolyte Replacement Protocol FS PRN (09:45)
[2022-07-18] MEDS ORDERED: Amiodarone 150 MG in Dextrose 5% in Water 100 ML IVPB SCH (10:00)
[2022-07-18] MEDS: Amiodarone 450 MG in Dextrose 5% in Water 250 ML IVPB SCH ×2 (10:16→18:21)
[2022-07-18] MEDS ORDERED: Vancomycin Dose by Levels Sliding Scale (Wt <71) FS SCH (10:45)
[2022-07-18] MEDS ORDERED: Vancomycin Dose by Levels Sliding Scale (Wt <71) FS PRN (10:45)
[2022-07-18 12:27] LABS: Potassium 4.2 mmol/L (3.5-5.1)
[2022-07-18] MEDS: traMADol HCl 50 MG TAB PO PRN (14:53)
[2022-07-18] MEDS: NOREPINEPHRINE 8 MG/250 ML-D5W 250 ML IVPB SCH (14:54)
[2022-07-18] MEDS: Cefepime 1 GM in Sodium Chloride 0.9% 100 ML IVPB SCH (20:22)
[2022-07-18] MEDS ORDERED: traZODone HCl 50 MG TAB PO SCH (23:30)
[2022-07-19] MEDS: Albuterol Sulfate 2.5 mg/3 ml Neb NEB SCH ×4 (01:27→18:25)
[2022-07-19] MEDS: traMADol HCl 50 MG TAB PO PRN ×2 (01:28→17:16)
[2022-07-19 04:26] LABS: #Lymphocytes 0.4 thou/uL (1.20-3.40); #Monocytes 0.3 thou/uL (0.11-0.59); #Neutrophils 7.5 thou/uL (1.40-6.50); %Lymphocytes 4.4 % (21.0-51.0); %Monocytes 4.1 % (0.0-10.0); %Neutrophils 91.5 % (42.0-75.0); Hemoglobin 9.1 g/dL (12.0-16.0); Mean Corpuscular Hemoglobin 30.3 pg (27.0-31.0); Mean Corpuscular Volume 94.6 fl (78.0-98.0); Mean Platelet Volume 10.2 fL (7.4-10.4); Platelet Count 131 10x3/uL (130-400); RBC Distribution Width 16.7 % (11.5-14.5); Red Blood Cell (RBC) Count 3.02 mill/uL (4.20-5.40); White Blood Cell (WBC) Count 8.2 10x3/uL (4.8-10.8)
[2022-07-19 04:46] LABS: Anion Gap 13 mmol/L (10-20); BUN (Urea Nitrogen) 24 mg/dL (9.8-20.1); Calc. Creatinine Clearance 26 mL/min (70-130); Calcium 7.9 mg/dL (7.8-10.44); Carbon Dioxide 23 mmol/L (23-31); Chloride 101 mmol/L (98-107); Estimated GFR 37; Glucose 110 mg/dL (80-115); Magnesium 1.9 mg/dL (1.6-2.6); Potassium 3.9 mmol/L (3.5-5.1); Sodium 133 mmol/L (136-145)
[2022-07-19] MEDS ORDERED: Magnesium 2 GM/50 ML(in water) 2 GM in Premix Bag 1 BAG IVPB SCH (08:00)
[2022-07-19] MEDS: Cefepime 1 GM in Sodium Chloride 0.9% 100 ML IVPB SCH ×2 (08:26→20:45)
[2022-07-19] MEDS: Amiodarone 450 MG in Dextrose 5% in Water 250 ML IVPB SCH (08:27)
[2022-07-19] MEDS: Gabapentin 300 MG CAP PO SCH ×2 (09:08→20:45)
[2022-07-19] MEDS: Sertraline 25 MG TAB PO SCH (09:09)
[2022-07-19] MEDS: Atorvastatin Calcium 40 MG TAB PO SCH (09:09)
[2022-07-19] MEDS: Pantoprazole 40 MG VIAL IVP SCH ×2 (09:09→20:45)
[2022-07-19] MEDS: Sodium Chloride 0.9% 1,000 ML IV SCH (11:29)
[2022-07-19] MEDS: Acetaminophen 325 MG TAB PO PRN (14:48)
[2022-07-19 15:51] LABS: Vancomycin, Random 7.4 ug/mL (See Comment)
[2022-07-19] MEDS ORDERED: Vancomycin HCl 750 MG in Sodium Chloride 0.9% 250 ML 250 ML IVPB SCH (16:15)
[2022-07-19] MEDS: NOREPINEPHRINE 8 MG/250 ML-D5W 250 ML IVPB SCH (16:31)
[2022-07-19] MEDS: traZODone HCl 50 MG TAB PO PRN (20:45)
[2022-07-19] MEDS ORDERED: traZODone HCl 50 MG TAB PO SCH (21:00)
[2022-07-20] MEDS: Amiodarone 450 MG in Dextrose 5% in Water 250 ML IVPB SCH (00:31)
[2022-07-20] MEDS: Sodium Chloride 0.9% 1,000 ML IV SCH ×2 (00:31→14:04)
[2022-07-20] MEDS: NOREPINEPHRINE 8 MG/250 ML-D5W 250 ML IVPB SCH (06:50)
[2022-07-20] MEDS ORDERED: Magnesium 2 GM/50 ML(in water) 2 GM in Premix Bag 1 BAG IVPB SCH (07:45)
[2022-07-20] MEDS ORDERED: Cefepime 1 GM in Sodium Chloride 0.9% 100 ML IVPB SCH (08:00)
[2022-07-20] MEDS: Gabapentin 300 MG CAP PO SCH ×2 (09:04→21:40)
[2022-07-20] MEDS: Pantoprazole 40 MG VIAL IVP SCH ×2 (09:04→21:41)
[2022-07-20] MEDS: Atorvastatin Calcium 40 MG TAB PO SCH (09:05)
[2022-07-20] MEDS: Sertraline 25 MG TAB PO SCH (09:05)
[2022-07-20 09:35] LABS: Anion Gap 11 mmol/L (10-20); BUN (Urea Nitrogen) 19 mg/dL (9.8-20.1); Calc. Creatinine Clearance 37 mL/min (70-130); Calcium 7.6 mg/dL (7.8-10.44); Carbon Dioxide 18 mmol/L (23-31); Chloride 108 mmol/L (98-107); Estimated GFR 56; Glucose 93 mg/dL (80-115); Potassium 4.4 mmol/L (3.5-5.1); Sodium 133 mmol/L (136-145)
[2022-07-20] MEDS: Amiodarone 200 MG TAB PO SCH ×2 (10:40→21:44)
[2022-07-20] MEDS: D5 1/4 NS 1,000 ML IV SCH ×2 (10:42→23:54)
[2022-07-20] MEDS: traMADol HCl 50 MG TAB PO PRN (11:45)
[2022-07-20] MEDS: methylPREDNISolone Sod Succ 40 MG VIAL IVP SCH ×3 (11:45→23:53)
[2022-07-20 12:30] LABS: #Lymphocytes 0.2 thou/uL (1.20-3.40); #Monocytes 0.3 thou/uL (0.11-0.59); #Neutrophils 2.9 thou/uL (1.40-6.50); %Eosinophils 1.1 % (0.0-10.0); %Lymphocytes 6.3 % (21.0-51.0); %Monocytes 8.7 % (0.0-10.0); %Neutrophils 83.9 % (42.0-75.0); Hemoglobin 9.1 g/dL (12.0-16.0); Mean Corpuscular HGB CONC 31.3 g/dL (32.0-36.0); Mean Corpuscular Hemoglobin 30.3 pg (27.0-31.0); Mean Platelet Volume 10.4 fL (7.4-10.4); Platelet Count 115 10x3/uL (130-400); RBC Distribution Width 16.7 % (11.5-14.5); White Blood Cell (WBC) Count 3.5 10x3/uL (4.8-10.8)
[2022-07-20] MEDS: traZODone HCl 50 MG TAB PO PRN (21:42)
[2022-07-21] MEDS: Sodium Chloride 0.9% 1,000 ML IV SCH (01:59)
[2022-07-21] MEDS: traMADol HCl 50 MG TAB PO PRN (04:50)
[2022-07-21] MEDS: methylPREDNISolone Sod Succ 40 MG VIAL IVP SCH ×2 (05:08→17:31)
[2022-07-21 06:45] LABS: Hemoglobin 7.7 g/dL (12.0-16.0); Mean Corpuscular HGB CONC 31.7 g/dL (32.0-36.0); Mean Corpuscular Hemoglobin 30.2 pg (27.0-31.0); Mean Corpuscular Volume 95.5 fl (78.0-98.0); Mean Platelet Volume 10.1 fL (7.4-10.4); Platelet Count 115 10x3/uL (130-400); RBC Distribution Width 16.6 % (11.5-14.5); Red Blood Cell (RBC) Count 2.54 mill/uL (4.20-5.40); White Blood Cell (WBC) Count 2.3 10x3/uL (4.8-10.8)
[2022-07-21 06:49] LABS: #Lymphocytes 0.2 thou/uL (1.20-3.40); #Monocytes 0.1 thou/uL (0.11-0.59); %Eosinophils 0.2 % (0.0-10.0); %Lymphocytes 8.1 % (21.0-51.0); %Monocytes 4.3 % (0.0-10.0); %Neutrophils 87.3 % (42.0-75.0)
[2022-07-21 06:57] LABS: Anion Gap 9 mmol/L (10-20); BUN (Urea Nitrogen) 18 mg/dL (9.8-20.1); Calc. Creatinine Clearance 43 mL/min (70-130); Calcium 7.8 mg/dL (7.8-10.44); Carbon Dioxide 23 mmol/L (23-31); Chloride 105 mmol/L (98-107); Estimated GFR 66; Glucose 141 mg/dL (80-115); Potassium 4.5 mmol/L (3.5-5.1); Sodium 132 mmol/L (136-145)
[2022-07-21] MEDS: Atorvastatin Calcium 40 MG TAB PO SCH (09:57)
[2022-07-21] MEDS: Pantoprazole 40 MG VIAL IVP SCH ×2 (09:57→20:20)
[2022-07-21] MEDS: Gabapentin 300 MG CAP PO SCH ×2 (09:57→20:20)
[2022-07-21] MEDS: Sertraline 25 MG TAB PO SCH (09:57)
[2022-07-21] MEDS: Amiodarone 200 MG TAB PO SCH ×2 (10:09→20:20)
[2022-07-22] MEDS: traMADol HCl 50 MG TAB PO PRN (02:06)
[2022-07-22] MEDS: traZODone HCl 50 MG TAB PO PRN ×2 (02:06→22:28)
[2022-07-22] MEDS: methylPREDNISolone Sod Succ 40 MG VIAL IVP SCH ×2 (05:08→18:36)
[2022-07-22 06:02] LABS: #Lymphocytes 0.4 thou/uL (1.20-3.40); #Monocytes 0.3 thou/uL (0.11-0.59); #Neutrophils 3.8 thou/uL (1.40-6.50); %Eosinophils 0.1 % (0.0-10.0); %Monocytes 6.9 % (0.0-10.0); Hemoglobin 8.1 g/dL (12.0-16.0); Mean Corpuscular HGB CONC 30.9 g/dL (32.0-36.0); Mean Corpuscular Hemoglobin 29.7 pg (27.0-31.0); Mean Corpuscular Volume 96.2 fl (78.0-98.0); Mean Platelet Volume 9.5 fL (7.4-10.4); Platelet Count 152 10x3/uL (130-400); RBC Distribution Width 16.7 % (11.5-14.5); Red Blood Cell (RBC) Count 2.74 mill/uL (4.20-5.40); White Blood Cell (WBC) Count 4.4 10x3/uL (4.8-10.8)
[2022-07-22 06:34] LABS: Anion Gap 13 mmol/L (10-20); BUN (Urea Nitrogen) 22 mg/dL (9.8-20.1); Calc. Creatinine Clearance 40 mL/min (70-130); Calcium 8.2 mg/dL (7.8-10.44); Carbon Dioxide 20 mmol/L (23-31); Chloride 108 mmol/L (98-107); Estimated GFR 60; Glucose 101 mg/dL (80-115); Potassium 4.4 mmol/L (3.5-5.1); Sodium 137 mmol/L (136-145)
[2022-07-22] MEDS: Gabapentin 300 MG CAP PO SCH ×2 (09:00→20:14)
[2022-07-22] MEDS: Amiodarone 200 MG TAB PO SCH ×2 (09:00→20:15)
[2022-07-22] MEDS: Atorvastatin Calcium 40 MG TAB PO SCH (09:00)
[2022-07-22] MEDS: Sertraline 25 MG TAB PO SCH (09:01)
[2022-07-22] MEDS: Pantoprazole 40 MG VIAL IVP SCH ×2 (09:01→20:15)
[2022-07-23] MEDS: methylPREDNISolone Sod Succ 40 MG VIAL IVP SCH ×2 (05:35→17:00)
[2022-07-23 06:11] LABS: #Lymphocytes 0.4 thou/uL (1.20-3.40); #Monocytes 0.5 thou/uL (0.11-0.59); #Neutrophils 4.2 thou/uL (1.40-6.50); %Eosinophils 0.2 % (0.0-10.0); %Monocytes 9.5 % (0.0-10.0); %Neutrophils 83.4 % (42.0-75.0); Hemoglobin 8.7 g/dL (12.0-16.0); Mean Corpuscular HGB CONC 31.6 g/dL (32.0-36.0); Mean Corpuscular Hemoglobin 30.2 pg (27.0-31.0); Mean Corpuscular Volume 95.4 fl (78.0-98.0); Mean Platelet Volume 9.1 fL (7.4-10.4); Platelet Count 172 10x3/uL (130-400); RBC Distribution Width 16.6 % (11.5-14.5); Red Blood Cell (RBC) Count 2.88 mill/uL (4.20-5.40)
[2022-07-23 06:20] LABS: Anion Gap 9 mmol/L (10-20); BUN (Urea Nitrogen) 23 mg/dL (9.8-20.1); Calc. Creatinine Clearance 39 mL/min (70-130); Calcium 8.1 mg/dL (7.8-10.44); Carbon Dioxide 25 mmol/L (23-31); Chloride 108 mmol/L (98-107); Estimated GFR 59; Glucose 104 mg/dL (80-115); Potassium 4.6 mmol/L (3.5-5.1); Sodium 137 mmol/L (136-145)
[2022-07-23] MEDS: Gabapentin 300 MG CAP PO SCH ×2 (08:35→20:23)
[2022-07-23] MEDS: Atorvastatin Calcium 40 MG TAB PO SCH (08:35)
[2022-07-23] MEDS: Sertraline 25 MG TAB PO SCH (08:36)
[2022-07-23] MEDS: Pantoprazole 40 MG VIAL IVP SCH ×2 (08:36→20:23)
[2022-07-23] MEDS: Amiodarone 200 MG TAB PO SCH ×2 (08:36→20:23)
[2022-07-23] MEDS: Bisacodyl 5 MG TAB PO PRN (13:07)
[2022-07-23] MEDS: traZODone HCl 50 MG TAB PO PRN (20:23)
[2022-07-24] MEDS: methylPREDNISolone Sod Succ 40 MG VIAL IVP SCH ×2 (05:06→18:27)
[2022-07-24 06:19] LABS: #Lymphocytes 0.6 thou/uL (1.20-3.40); #Monocytes 0.6 thou/uL (0.11-0.59); #Neutrophils 4.9 thou/uL (1.40-6.50); %Basophils 0.3 % (0.0-1.0); %Eosinophils 0.3 % (0.0-10.0); %Lymphocytes 9.1 % (21.0-51.0); %Monocytes 9.7 % (0.0-10.0); %Neutrophils 80.6 % (42.0-75.0); Hemoglobin 8.6 g/dL (12.0-16.0); Mean Corpuscular HGB CONC 33.1 g/dL (32.0-36.0); Mean Corpuscular Hemoglobin 31.6 pg (27.0-31.0); Mean Corpuscular Volume 95.3 fl (78.0-98.0); Mean Platelet Volume 8.8 fL (7.4-10.4); Platelet Count 205 10x3/uL (130-400); RBC Distribution Width 16.8 % (11.5-14.5); Red Blood Cell (RBC) Count 2.73 mill/uL (4.20-5.40)
[2022-07-24 06:41] LABS: Anion Gap 13 mmol/L (10-20); BUN (Urea Nitrogen) 23 mg/dL (9.8-20.1); Calc. Creatinine Clearance 39 mL/min (70-130); Calcium 8.2 mg/dL (7.8-10.44); Carbon Dioxide 24 mmol/L (23-31); Chloride 107 mmol/L (98-107); Estimated GFR 59; Glucose 86 mg/dL (80-115); Potassium 4.9 mmol/L (3.5-5.1); Sodium 139 mmol/L (136-145)
[2022-07-24] MEDS: Atorvastatin Calcium 40 MG TAB PO SCH (09:01)
[2022-07-24] MEDS: Sertraline 25 MG TAB PO SCH (09:01)
[2022-07-24] MEDS: Bisacodyl 5 MG TAB PO PRN (09:01)
[2022-07-24] MEDS: Amiodarone 200 MG TAB PO SCH ×2 (09:01→20:16)
[2022-07-24] MEDS: Gabapentin 300 MG CAP PO SCH ×2 (09:01→20:15)
[2022-07-24] MEDS: Pantoprazole 40 MG VIAL IVP SCH ×2 (09:02→20:16)
[2022-07-24] MEDS: Acetaminophen 325 MG TAB PO PRN (20:15)
[2022-07-25] MEDS: traZODone HCl 50 MG TAB PO PRN (00:24)
[2022-07-25] MEDS: methylPREDNISolone Sod Succ 40 MG VIAL IVP SCH ×2 (06:28→18:00)
[2022-07-25 07:36] LABS: #Lymphocytes 0.5 thou/uL (1.20-3.40); #Monocytes 0.4 thou/uL (0.11-0.59); #Neutrophils 4.3 thou/uL (1.40-6.50); %Eosinophils 0.3 % (0.0-10.0); %Lymphocytes 10.2 % (21.0-51.0); %Monocytes 8.1 % (0.0-10.0); %Neutrophils 81.4 % (42.0-75.0); Hemoglobin 8.2 g/dL (12.0-16.0); Mean Corpuscular HGB CONC 30.9 g/dL (32.0-36.0); Mean Corpuscular Hemoglobin 29.3 pg (27.0-31.0); Mean Platelet Volume 8.7 fL (7.4-10.4); Platelet Count 241 10x3/uL (130-400); RBC Distribution Width 16.6 % (11.5-14.5); White Blood Cell (WBC) Count 5.2 10x3/uL (4.8-10.8)
[2022-07-25] MEDS: Atorvastatin Calcium 40 MG TAB PO SCH (07:41)
[2022-07-25] MEDS: Gabapentin 300 MG CAP PO SCH ×2 (07:41→20:49)
[2022-07-25] MEDS: Sertraline 25 MG TAB PO SCH (07:41)
[2022-07-25] MEDS: Amiodarone 200 MG TAB PO SCH ×2 (07:41→20:50)
[2022-07-25] MEDS: Pantoprazole 40 MG VIAL IVP SCH ×2 (07:42→20:51)
[2022-07-25 07:55] LABS: Anion Gap 11 mmol/L (10-20); BUN (Urea Nitrogen) 23 mg/dL (9.8-20.1); Calc. Creatinine Clearance 41 mL/min (70-130); Calcium 7.9 mg/dL (7.8-10.44); Carbon Dioxide 26 mmol/L (23-31); Chloride 105 mmol/L (98-107); Estimated GFR 63; Glucose 88 mg/dL (80-115); Sodium 137 mmol/L (136-145)
[2022-07-25] MEDS: traMADol HCl 50 MG TAB PO PRN (21:57)
[2022-07-25] MEDS ORDERED: cloNIDine 0.1 MG TAB PO PRN (22:36)
[2022-07-25] MEDS: Morphine 4 MG/ML VIAL SLOW IVP PRN (23:06)
[2022-07-26] MEDS: methylPREDNISolone Sod Succ 40 MG VIAL IVP SCH ×2 (05:46→17:23)
[2022-07-26 06:46] LABS: #Lymphocytes 0.5 thou/uL (1.20-3.40); #Monocytes 0.4 thou/uL (0.11-0.59); #Neutrophils 4.9 thou/uL (1.40-6.50); %Eosinophils 0.4 % (0.0-10.0); %Lymphocytes 9.1 % (21.0-51.0); %Monocytes 6.1 % (0.0-10.0); %Neutrophils 84.4 % (42.0-75.0); Hemoglobin 8.3 g/dL (12.0-16.0); Mean Corpuscular HGB CONC 31.4 g/dL (32.0-36.0); Mean Corpuscular Hemoglobin 29.8 pg (27.0-31.0); Mean Platelet Volume 8.1 fL (7.4-10.4); Platelet Count 285 10x3/uL (130-400); RBC Distribution Width 16.5 % (11.5-14.5); Red Blood Cell (RBC) Count 2.77 mill/uL (4.20-5.40); White Blood Cell (WBC) Count 5.8 10x3/uL (4.8-10.8)
[2022-07-26 07:06] LABS: ALT (SGPT) 27 U/L (8-55); AST (SGOT) 19 U/L (5-34); Albumin 2.7 g/dL (3.4-4.8); Alkaline Phosphatase 64 U/L (40-110); Anion Gap 10 mmol/L (10-20); BUN (Urea Nitrogen) 28 mg/dL (9.8-20.1); Bilirubin, Total 0.4 mg/dL (0.2-1.2); Calc. Creatinine Clearance 47 mL/min (70-130); Calcium 7.8 mg/dL (7.8-10.44); Carbon Dioxide 29 mmol/L (23-31); Chloride 102 mmol/L (98-107); Estimated GFR 73; Globulin 2.1 g/dL (2.4-3.5); Glucose 89 mg/dL (80-115); Magnesium 1.7 mg/dL (1.6-2.6); Phosphorus 3.6 mg/dL (2.3-4.7); Potassium 4.9 mmol/L (3.5-5.1); Protein, Total 4.8 g/dL (5.8-8.1); Sodium 136 mmol/L (136-145)
[2022-07-26] MEDS ORDERED: Magnesium 2 GM/50 ML(in water) 2 GM in Premix Bag 1 BAG IVPB SCH (08:00)
[2022-07-26] MEDS: Atorvastatin Calcium 40 MG TAB PO SCH (09:09)
[2022-07-26] MEDS: Pantoprazole 40 MG VIAL IVP SCH ×2 (09:09→20:42)
[2022-07-26] MEDS: Gabapentin 300 MG CAP PO SCH ×2 (09:09→20:41)
[2022-07-26] MEDS: Sertraline 25 MG TAB PO SCH (09:09)
[2022-07-26] MEDS: Amiodarone 200 MG TAB PO SCH ×2 (09:10→20:42)
[2022-07-26] MEDS: Acetaminophen 325 MG TAB PO PRN (14:14)
[2022-07-26] MEDS: traZODone HCl 50 MG TAB PO PRN (20:42)
[2022-07-27] MEDS: methylPREDNISolone Sod Succ 40 MG VIAL IVP SCH ×2 (06:29→18:01)
[2022-07-27 07:21] LABS: #Lymphocytes 0.4 thou/uL (1.20-3.40); #Monocytes 0.5 thou/uL (0.11-0.59); #Neutrophils 4.9 thou/uL (1.40-6.50); %Basophils 0.7 % (0.0-1.0); %Eosinophils 0.3 % (0.0-10.0); %Lymphocytes 7.5 % (21.0-51.0); %Monocytes 8.5 % (0.0-10.0); Hemoglobin 8.7 g/dL (12.0-16.0); Mean Corpuscular HGB CONC 31.2 g/dL (32.0-36.0); Mean Corpuscular Hemoglobin 29.7 pg (27.0-31.0); Mean Corpuscular Volume 95.3 fl (78.0-98.0); Mean Platelet Volume 7.7 fL (7.4-10.4); Platelet Count 333 10x3/uL (130-400); RBC Distribution Width 16.4 % (11.5-14.5); Red Blood Cell (RBC) Count 2.92 mill/uL (4.20-5.40); White Blood Cell (WBC) Count 5.9 10x3/uL (4.8-10.8)
[2022-07-27 07:55] LABS: ALT (SGPT) 29 U/L (8-55); AST (SGOT) 19 U/L (5-34); Albumin 2.8 g/dL (3.4-4.8); Alkaline Phosphatase 69 U/L (40-110); Anion Gap 9 mmol/L (10-20); BUN (Urea Nitrogen) 26 mg/dL (9.8-20.1); Bilirubin, Total 0.4 mg/dL (0.2-1.2); Calc. Creatinine Clearance 44 mL/min (70-130); Calcium 7.7 mg/dL (7.8-10.44); Carbon Dioxide 28 mmol/L (23-31); Chloride 105 mmol/L (98-107); Estimated GFR 68; Globulin 2.2 g/dL (2.4-3.5); Glucose 108 mg/dL (80-115); Magnesium 2.2 mg/dL (1.6-2.6); Potassium 4.6 mmol/L (3.5-5.1); Sodium 137 mmol/L (136-145)
[2022-07-27] MEDS: Gabapentin 300 MG CAP PO SCH ×2 (09:02→22:08)
[2022-07-27] MEDS: Amiodarone 200 MG TAB PO SCH ×2 (09:02→22:08)
[2022-07-27] MEDS: Sertraline 25 MG TAB PO SCH (09:02)
[2022-07-27] MEDS: Atorvastatin Calcium 40 MG TAB PO SCH (09:02)
[2022-07-27] MEDS: Pantoprazole 40 MG VIAL IVP SCH ×2 (09:03→22:09)
[2022-07-27 16:33] LABS: Troponin I 0.463 ng/mL (< 0.028)
[2022-07-27] MEDS: traMADol HCl 50 MG TAB PO PRN (18:01)
[2022-07-27] MEDS ORDERED: Nitroglycerin 0.4 MG TAB (25 Tab Bottle) SL PRN (19:03)
[2022-07-27 20:08] LABS: Troponin I 0.563 ng/mL (< 0.028)
[2022-07-27] MEDS: traZODone HCl 50 MG TAB PO PRN (22:09)
[2022-07-27] MEDS: Acetaminophen 325 MG TAB PO PRN (22:25)
[2022-07-27 23:38] LABS: Critical Call Chem Troponin I RESULT DECREASING; Troponin I 0.483 ng/mL (< 0.028)
[2022-07-28] MEDS: traMADol HCl 50 MG TAB PO PRN (00:55)
[2022-07-28] MEDS: methylPREDNISolone Sod Succ 40 MG VIAL IVP SCH ×2 (05:30→17:53)
[2022-07-28 06:30] LABS: #Lymphocytes 0.5 thou/uL (1.20-3.40); #Monocytes 0.5 thou/uL (0.11-0.59); #Neutrophils 5.2 thou/uL (1.40-6.50); %Basophils 0.1 % (0.0-1.0); %Eosinophils 0.1 % (0.0-10.0); %Monocytes 8.1 % (0.0-10.0); %Neutrophils 83.8 % (42.0-75.0); Hemoglobin 8.9 g/dL (12.0-16.0); Mean Corpuscular HGB CONC 31.6 g/dL (32.0-36.0); Mean Corpuscular Hemoglobin 30.1 pg (27.0-31.0); Mean Corpuscular Volume 95.3 fl (78.0-98.0); Mean Platelet Volume 7.5 fL (7.4-10.4); Platelet Count 325 10x3/uL (130-400); RBC Distribution Width 16.6 % (11.5-14.5); Red Blood Cell (RBC) Count 2.96 mill/uL (4.20-5.40); White Blood Cell (WBC) Count 6.2 10x3/uL (4.8-10.8)
[2022-07-28 06:51] LABS: Anion Gap 12 mmol/L (10-20); BUN (Urea Nitrogen) 27 mg/dL (9.8-20.1); Calc. Creatinine Clearance 42 mL/min (70-130); Carbon Dioxide 26 mmol/L (23-31); Chloride 104 mmol/L (98-107); Estimated GFR 64; Glucose 90 mg/dL (80-115); Potassium 5.1 mmol/L (3.5-5.1); Sodium 137 mmol/L (136-145)
[2022-07-28 06:57] LABS: Critical Call Chem Troponin I RESULT DECREASING; Troponin I 0.442 ng/mL (< 0.028)
[2022-07-28] MEDS: Atorvastatin Calcium 40 MG TAB PO SCH (08:37)
[2022-07-28] MEDS: Gabapentin 300 MG CAP PO SCH ×2 (08:37→20:18)
[2022-07-28] MEDS: Sertraline 25 MG TAB PO SCH (08:37)
[2022-07-28] MEDS: Amiodarone 200 MG TAB PO SCH ×2 (08:37→20:19)
[2022-07-28] MEDS: Pantoprazole 40 MG VIAL IVP SCH ×2 (08:37→20:19)
[2022-07-28 14:04] LABS: Critical Call Chem Troponin I RESULT DECREASING
[2022-07-28] MEDS: Bisacodyl 5 MG TAB PO PRN (15:54)
[2022-07-28 21:26] LABS: Troponin I 0.383 ng/mL (< 0.028)
[2022-07-29 02:10] LABS: Critical Call Chem Troponin I RESULT DECREASING; Troponin I 0.329 ng/mL (< 0.028)
[2022-07-29] MEDS: methylPREDNISolone Sod Succ 40 MG VIAL IVP SCH (05:50)
[2022-07-29 07:03] LABS: #Lymphocytes 0.4 thou/uL (1.20-3.40); #Monocytes 0.6 thou/uL (0.11-0.59); #Neutrophils 6.6 thou/uL (1.40-6.50); %Basophils 0.3 % (0.0-1.0); %Eosinophils 0.2 % (0.0-10.0); %Lymphocytes 5.5 % (21.0-51.0); %Monocytes 7.7 % (0.0-10.0); %Neutrophils 86.4 % (42.0-75.0); Hemoglobin 9.4 g/dL (12.0-16.0); Mean Corpuscular HGB CONC 30.8 g/dL (32.0-36.0); Mean Corpuscular Hemoglobin 29.5 pg (27.0-31.0); Mean Corpuscular Volume 95.8 fl (78.0-98.0); Mean Platelet Volume 7.9 fL (7.4-10.4); Platelet Count 333 10x3/uL (130-400); RBC Distribution Width 16.4 % (11.5-14.5); Red Blood Cell (RBC) Count 3.17 mill/uL (4.20-5.40); White Blood Cell (WBC) Count 7.7 10x3/uL (4.8-10.8)
[2022-07-29 07:22] LABS: ALT (SGPT) 31 U/L (8-55); AST (SGOT) 21 U/L (5-34); Albumin 3.1 g/dL (3.4-4.8); Alkaline Phosphatase 78 U/L (40-110); Anion Gap 16 mmol/L (10-20); BUN (Urea Nitrogen) 30 mg/dL (9.8-20.1); Bilirubin, Total 0.6 mg/dL (0.2-1.2); Calc. Creatinine Clearance 40 mL/min (70-130); Carbon Dioxide 24 mmol/L (23-31); Chloride 104 mmol/L (98-107); Estimated GFR 60; Globulin 2.2 g/dL (2.4-3.5); Glucose 88 mg/dL (80-115); Potassium 5.2 mmol/L (3.5-5.1); Protein, Total 5.3 g/dL (5.8-8.1); Sodium 139 mmol/L (136-145)
[2022-07-29 07:33] LABS: Critical Call Chem Troponin I RESULT DECREASING; Troponin I 0.308 ng/mL (< 0.028)
[2022-07-29] MEDS: traMADol HCl 50 MG TAB PO PRN (08:53)
[2022-07-29] MEDS: Atorvastatin Calcium 40 MG TAB PO SCH (08:53)
[2022-07-29] MEDS: Gabapentin 300 MG CAP PO SCH ×2 (08:54→20:59)
[2022-07-29] MEDS: Sertraline 25 MG TAB PO SCH (08:54)
[2022-07-29] MEDS: Amiodarone 200 MG TAB PO SCH ×2 (08:54→20:59)
[2022-07-29] MEDS: Pantoprazole 40 MG VIAL IVP SCH (08:54)
[2022-07-30 06:51] LABS: #Basophils 0.1 thou/uL (0.0-0.2); #Eosinphils 0.1 thou/uL (0.0-0.7); #Lymphocytes 0.8 thou/uL (1.20-3.40); #Monocytes 0.7 thou/uL (0.11-0.59); #Neutrophils 6.5 thou/uL (1.40-6.50); %Basophils 0.8 % (0.0-1.0); %Monocytes 8.6 % (0.0-10.0); %Neutrophils 79.5 % (42.0-75.0); Hemoglobin 9.3 g/dL (12.0-16.0); Mean Corpuscular HGB CONC 31.6 g/dL (32.0-36.0); Mean Corpuscular Volume 94.8 fl (78.0-98.0); Mean Platelet Volume 7.8 fL (7.4-10.4); Platelet Count 297 10x3/uL (130-400); RBC Distribution Width 16.4 % (11.5-14.5); Red Blood Cell (RBC) Count 3.08 mill/uL (4.20-5.40); White Blood Cell (WBC) Count 8.2 10x3/uL (4.8-10.8)
[2022-07-30 07:11] LABS: ALT (SGPT) 30 U/L (8-55); AST (SGOT) 23 U/L (5-34); Albumin 3.1 g/dL (3.4-4.8); Alkaline Phosphatase 71 U/L (40-110); Anion Gap 10 mmol/L (10-20); BUN (Urea Nitrogen) 26 mg/dL (9.8-20.1); Bilirubin, Total 0.5 mg/dL (0.2-1.2); Calc. Creatinine Clearance 36 mL/min (70-130); Calcium 7.9 mg/dL (7.8-10.44); Carbon Dioxide 27 mmol/L (23-31); Chloride 106 mmol/L (98-107); Estimated GFR 53; Globulin 2.1 g/dL (2.4-3.5); Glucose 71 mg/dL (80-115); Potassium 5.2 mmol/L (3.5-5.1); Protein, Total 5.2 g/dL (5.8-8.1); Sodium 138 mmol/L (136-145)
[2022-07-30] MEDS ORDERED: methylPREDNISolone Sod Succ 40 MG VIAL IVP SCH (09:00)
[2022-07-30] MEDS: Aspirin 81 mg Enteric Coated Tablet PO SCH (09:38)
[2022-07-30] MEDS: Atorvastatin Calcium 40 MG TAB PO SCH (09:38)
[2022-07-30] MEDS: Amiodarone 200 MG TAB PO SCH (09:38)
[2022-07-30] MEDS: Gabapentin 300 MG CAP PO SCH ×2 (09:38→20:59)
[2022-07-30] MEDS: Sertraline 25 MG TAB PO SCH (09:38)
[2022-07-30 17:30] LABS: Anion Gap 18 mmol/L (10-20); BUN (Urea Nitrogen) 27 mg/dL (9.8-20.1); Calc. Creatinine Clearance 32 mL/min (70-130); Calcium 8.1 mg/dL (7.8-10.44); Carbon Dioxide 23 mmol/L (23-31); Chloride 104 mmol/L (98-107); Estimated GFR 47; Glucose 121 mg/dL (80-115); Sodium 139 mmol/L (136-145)
[2022-07-30 17:41] LABS: Potassium 6.1 mmol/L (3.5-5.1)
[2022-07-30 19:59] LABS: Chloride 105 mmol/L (98-107); Potassium 5.3 mmol/L (3.5-5.1); Sodium 138 mmol/L (136-145)
[2022-07-30 20:00] LABS: Calcium 7.9 mg/dL (7.8-10.44); Glucose 123 mg/dL (80-115)
[2022-07-30 20:02] LABS: Anion Gap 10 mmol/L (10-20); Carbon Dioxide 28 mmol/L (23-31)
[2022-07-30 20:04] LABS: BUN (Urea Nitrogen) 26 mg/dL (9.8-20.1); Calc. Creatinine Clearance 34 mL/min (70-130); Estimated GFR 50
[2022-07-31 06:28] LABS: #Eosinphils 0.1 thou/uL (0.0-0.7); #Lymphocytes 0.8 thou/uL (1.20-3.40); #Monocytes 0.7 thou/uL (0.11-0.59); #Neutrophils 5.8 thou/uL (1.40-6.50); %Eosinophils 0.7 % (0.0-10.0); %Lymphocytes 10.3 % (21.0-51.0); %Monocytes 9.9 % (0.0-10.0); Hemoglobin 8.7 g/dL (12.0-16.0); Mean Corpuscular HGB CONC 31.7 g/dL (32.0-36.0); Mean Corpuscular Hemoglobin 29.8 pg (27.0-31.0); Mean Corpuscular Volume 94.1 fl (78.0-98.0); Platelet Count 291 10x3/uL (130-400); RBC Distribution Width 16.5 % (11.5-14.5); Red Blood Cell (RBC) Count 2.92 mill/uL (4.20-5.40); White Blood Cell (WBC) Count 7.4 10x3/uL (4.8-10.8)
[2022-07-31 06:48] LABS: Anion Gap 9 mmol/L (10-20); BUN (Urea Nitrogen) 28 mg/dL (9.8-20.1); Calc. Creatinine Clearance 38 mL/min (70-130); Calcium 7.8 mg/dL (7.8-10.44); Carbon Dioxide 27 mmol/L (23-31); Chloride 106 mmol/L (98-107); Estimated GFR 56; Glucose 80 mg/dL (80-115); Potassium 4.8 mmol/L (3.5-5.1); Sodium 137 mmol/L (136-145)
[2022-07-31] MEDS: Sertraline 25 MG TAB PO SCH (10:07)
[2022-07-31] MEDS: Aspirin 81 mg Enteric Coated Tablet PO SCH (10:07)
[2022-07-31] MEDS: Gabapentin 300 MG CAP PO SCH (10:08)
[2022-07-31] MEDS: Atorvastatin Calcium 40 MG TAB PO SCH (10:08)
[2022-07-31 16:54] VITALS: BP 133/65; TEMP 97.9
[2022-08-03] MEDS ORDERED: methylPREDNISolone Sod Succ 40 MG VIAL IVP SCH (09:00)
== END 2022-07-31 14:56 | disposition home health service (06) | DRG 377 ==
LOC: ERS 05:56 → 2SW 10:08 → OBSVTOIN 07-15 16:28 → CCU 07-17 18:37 → T4-B 07-21 13:53
PROVIDERS: ADMIT Internal Medicine; ATTEND Internal Medicine
PROC: 0W3P8ZZ Control Bleeding in Gastrointestinal Tract, Via Natural or Artificial Opening Endoscopic (ICD-10-PCS; principal; 2022-07-15)
PROC: 0DJD8ZZ Inspection of Lower Intestinal Tract, Via Natural or Artificial Opening Endoscopic (ICD-10-PCS; 2022-07-15)
PROC: 0DB78ZX Excision of Stomach, Pylorus, Via Natural or Artificial Opening Endoscopic, Diagnostic (ICD-10-PCS; 2022-07-15)
PROC: 3E033XZ Introduction of Vasopressor into Peripheral Vein, Percutaneous Approach (ICD-10-PCS; 2022-07-19)
DX: K31.811 Angiodysplasia of stomach and duodenum with bleeding (principal); Z20.822 Contact with and (suspected) exposure to COVID-19; Z66 Do not resuscitate; E43 Unspecified severe protein-calorie malnutrition; J18.9 Pneumonia, unspecified organism; R57.8 Other shock; I21.4 Non-ST elevation (NSTEMI) myocardial infarction; E87.20 Acidosis, unspecified; D62 Acute posthemorrhagic anemia; Z68.1 Body mass index [BMI] 19.9 or less, adult; I69.351 Hemiplegia and hemiparesis following cerebral infarction affecting right dominant side; I13.0 Hypertensive heart and chronic kidney disease with heart failure and stage 1 through stage 4 chronic kidney disease, or unspecified chronic kidney disease; K44.9 Diaphragmatic hernia without obstruction or gangrene; K29.70 Gastritis, unspecified, without bleeding; N18.30 Chronic kidney disease, stage 3 unspecified; I25.10 Atherosclerotic heart disease of native coronary artery without angina pectoris; I73.9 Peripheral vascular disease, unspecified; Y95 Nosocomial condition; K31.89 Other diseases of stomach and duodenum; F17.210 Nicotine dependence, cigarettes, uncomplicated; I50.9 Heart failure, unspecified; F15.10 Other stimulant abuse, uncomplicated; E78.00 Pure hypercholesterolemia, unspecified; I48.0 Paroxysmal atrial fibrillation; Z88.1 Allergy status to other antibiotic agents; Z88.5 Allergy status to narcotic agent; Z88.0 Allergy status to penicillin; Z79.899 Other long term (current) drug therapy; Z79.02 Long term (current) use of antithrombotics/antiplatelets; Z90.49 Acquired absence of other specified parts of digestive tract; Z90.710 Acquired absence of both cervix and uterus; Z82.49 Family history of ischemic heart disease and other diseases of the circulatory system; Z82.3 Family history of stroke; I69.320 Aphasia following cerebral infarction; Z71.6 Tobacco abuse counseling
CPT/HCPCS: 36415; 36600; 71045; 71275; 80048; 80053; 80202; 81001; 81003; 82533; 82553; 82805; 83605; 83735; 83880; 84100; 84145; 84484; 85025; 86850; 86900; 86901; 87040; 87070; 87081; 87205; 87811; 88305; 93005; 93010; 93306; 93798; 93923; 94640; 96374; 96375; 96376; C9113; G0378; J0171; J0282; J0692; J1160; J1940; J1956; J2270; J2704; J2920; J3370; J3475; J3490; J7030; J7042; J7050; J7070; J7611; J7620; Q9967; U0003; U0005

== ENCOUNTER 2022-08-09 15:21 | Observation (INO) | payer MEDICARE ==
[2022-08-09 17:41] VITALS: BMI 17.2
[2022-08-09] MEDS ORDERED: Acetaminophen 325 MG TAB PO PRN (18:26)
[2022-08-09 19:09] LABS: Troponin I 0.039 ng/mL (< 0.028)
[2022-08-09 19:13] LABS: Magnesium 1.8 mg/dL (1.6-2.6)
[2022-08-09] MEDS: Sodium Chloride 0.9% 1,000 ML IV SCH (20:04)
[2022-08-09 21:43] LABS: Amphetamine Not Detected (NotDetected); Barbiturates Screen Not Detected (NotDetected); Benzodiazepine Screen Not Detected (NotDetected); Cocaine Metabolite Screen Not Detected (NotDetected); Methadone Not Detected (NotDetected); Methamphetamine Not Detected (NotDetected); Opiate Screen Not Detected (NotDetected); Oxycodone Screen Not Detected (NotDetected); Phencyclidine (PCP) Not Detected (NotDetected); THC/Cannabinoid Screen Not Detected (NotDetected); Tricyclic Screen Not Detected (NotDetected)
[2022-08-09 22:03] LABS: Troponin I 0.045 ng/mL (< 0.028)
[2022-08-09] MEDS ORDERED: Electrolyte Replacement Protocol 1 EACH FS SCH (22:45)
[2022-08-09] MEDS: Albuterol Sulfate 1.25 MG/3 ML NEB INH SCH (23:00)
[2022-08-10] MEDS: Albuterol Sulfate 1.25 MG/3 ML NEB INH SCH ×4 (03:33→14:41)
[2022-08-10 05:26] LABS: #Eosinphils 0.3 thou/uL (0.0-0.7); #Lymphocytes 0.4 thou/uL (1.20-3.40); #Monocytes 0.7 thou/uL (0.11-0.59); #Neutrophils 4.2 thou/uL (1.40-6.50); %Basophils 0.7 % (0.0-1.0); %Eosinophils 5.7 % (0.0-10.0); %Lymphocytes 7.4 % (21.0-51.0); %Monocytes 11.7 % (0.0-10.0); %Neutrophils 74.5 % (42.0-75.0); Hemoglobin 8.8 g/dL (12.0-16.0); Mean Corpuscular HGB CONC 31.3 g/dL (32.0-36.0); Mean Corpuscular Hemoglobin 28.4 pg (27.0-31.0); Mean Corpuscular Volume 90.7 fl (78.0-98.0); Mean Platelet Volume 10.1 fL (7.4-10.4); Platelet Count 123 10x3/uL (130-400); RBC Distribution Width 16.7 % (11.5-14.5); White Blood Cell (WBC) Count 5.7 10x3/uL (4.8-10.8)
[2022-08-10 05:46] LABS: Troponin I 0.069 ng/mL (< 0.028)
[2022-08-10 05:47] LABS: ALT (SGPT) 25 U/L (8-55); AST (SGOT) 23 U/L (5-34); Albumin 2.9 g/dL (3.4-4.8); Alkaline Phosphatase 83 U/L (40-110); Anion Gap 12 mmol/L (10-20); BUN (Urea Nitrogen) 28 mg/dL (9.8-20.1); Bilirubin, Total 0.4 mg/dL (0.2-1.2); Calc. Creatinine Clearance 26 mL/min (70-130); Calcium 7.4 mg/dL (7.8-10.44); Carbon Dioxide 22 mmol/L (23-31); Chloride 109 mmol/L (98-107); Estimated GFR 36; Globulin 1.9 g/dL (2.4-3.5); Glucose 105 mg/dL (80-115); Potassium 4.4 mmol/L (3.5-5.1); Protein, Total 4.8 g/dL (5.8-8.1); Sodium 139 mmol/L (136-145)
[2022-08-10] MEDS ORDERED: Magnesium 2 GM/50 ML(in water) 2 GM in Premix Bag 1 BAG IVPB SCH (08:00)
[2022-08-10] MEDS: Sodium Chloride 0.9% 1,000 ML IV SCH (08:29)
[2022-08-10] MEDS ORDERED: Atorvastatin Calcium 40 MG TAB PO SCH (09:00)
[2022-08-10] MEDS ORDERED: Sertraline 25 MG TAB PO SCH (09:00)
[2022-08-10] MEDS ORDERED: Aspirin 81 mg Enteric Coated Tablet PO SCH (09:45)
[2022-08-10 15:25] VITALS: BP 159/78; TEMP 99.6
[2022-08-10 17:12] LABS: Anion Gap 11 mmol/L (10-20); BUN (Urea Nitrogen) 20 mg/dL (9.8-20.1); Calc. Creatinine Clearance 31 mL/min (70-130); Calcium 8.1 mg/dL (7.8-10.44); Carbon Dioxide 25 mmol/L (23-31); Chloride 108 mmol/L (98-107); Estimated GFR 45; Glucose 90 mg/dL (80-115); Potassium 4.7 mmol/L (3.5-5.1); Sodium 139 mmol/L (136-145)
[2022-08-11] MEDS ORDERED: Aspirin 81 mg Enteric Coated Tablet PO SCH (09:00)
== END 2022-08-10 18:35 | disposition home or self-care (01) ==
LOC: 2SW 15:21
PROVIDERS: ADMIT Internal Medicine; ATTEND Internal Medicine
DX: I95.9 Hypotension, unspecified (principal); I12.9 Hypertensive chronic kidney disease with stage 1 through stage 4 chronic kidney disease, or unspecified chronic kidney disease; N18.30 Chronic kidney disease, stage 3 unspecified; N17.9 Acute kidney failure, unspecified; I25.10 Atherosclerotic heart disease of native coronary artery without angina pectoris; I73.9 Peripheral vascular disease, unspecified; I69.351 Hemiplegia and hemiparesis following cerebral infarction affecting right dominant side; F15.11 Other stimulant abuse, in remission; I48.0 Paroxysmal atrial fibrillation; I25.2 Old myocardial infarction; R77.8 Other specified abnormalities of plasma proteins; E78.5 Hyperlipidemia, unspecified; Z87.891 Personal history of nicotine dependence; Z79.82 Long term (current) use of aspirin; Z79.899 Other long term (current) drug therapy; Z88.0 Allergy status to penicillin; Z88.1 Allergy status to other antibiotic agents; Z88.5 Allergy status to narcotic agent; Z95.5 Presence of coronary angioplasty implant and graft
CPT/HCPCS: 80048; 80053; 80306; 83735; 84484 ×2; 85025; 94640 ×2; 96374; G0378 ×2; 36415; J3475; J7050

== ENCOUNTER 2022-09-11 15:02 | Outpatient (CLI) | payer MEDICARE | END 2022-09-11 15:03 | disposition home or self-care (01) | LOC: CT 15:02 | PROVIDERS: ATTEND Thoracic Surgery (Cardiothoracic Vascular Surgery) | DX: I73.9 Peripheral vascular disease, unspecified (principal) | CPT/HCPCS: 82565 ==

== ENCOUNTER 2022-10-02 14:26 | Outpatient (CLI) | payer MEDICARE ==
[~2022-10-02 14:26] MED LIST: Iopamidol 370 76% 100 ML VIAL ONE
== END 2022-10-02 14:27 | disposition home or self-care (01) ==
LOC: CT 14:26
PROVIDERS: ATTEND Thoracic Surgery (Cardiothoracic Vascular Surgery)
DX: I73.9 Peripheral vascular disease, unspecified (principal)
CPT/HCPCS: 75635; 82565

== ENCOUNTER 2023-01-06 11:35 | Emergency (ER) | payer MEDICARE ==
[2023-01-06 12:25] LABS: #Basophils 0.1 thou/uL (0.0-0.2); #Eosinphils 0.2 thou/uL (0.0-0.7); #Monocytes 0.6 thou/uL (0.11-0.59); #Neutrophils 3.1 thou/uL (1.40-6.50); %Eosinophils 4.6 % (0.0-10.0); %Lymphocytes 17.7 % (21.0-51.0); %Monocytes 11.9 % (0.0-10.0); %Neutrophils 64.6 % (42.0-75.0); Hemoglobin 13.5 g/dL (12.0-16.0); Mean Corpuscular HGB CONC 30.4 g/dL (32.0-36.0); Mean Corpuscular Hemoglobin 27.1 pg (27.0-31.0); Mean Corpuscular Volume 89.2 fl (78.0-98.0); Mean Platelet Volume 10.6 fL (7.4-10.4); Platelet Count 211 10x3/uL (130-400); RBC Distribution Width 20.4 % (11.5-14.5); Red Blood Cell (RBC) Count 4.98 mill/uL (4.20-5.40); White Blood Cell (WBC) Count 4.8 10x3/uL (4.8-10.8)
[2023-01-06 12:40] LABS: ALT (SGPT) 13 U/L (8-55); AST (SGOT) 15 U/L (5-34); Albumin 3.8 g/dL (3.4-4.8); Alkaline Phosphatase 94 U/L (40-110); Anion Gap 12 mmol/L (10-20); BUN (Urea Nitrogen) 16 mg/dL (9.8-20.1); Bilirubin, Total 0.6 mg/dL (0.2-1.2); Calc. Creatinine Clearance 0 mL/min (70-130); Calcium 9.3 mg/dL (7.8-10.44); Carbon Dioxide 28 mmol/L (23-31); Chloride 106 mmol/L (98-107); Estimated GFR 43; Globulin 2.6 g/dL (2.4-3.5); Glucose 82 mg/dL (80-115); Potassium 4.9 mmol/L (3.5-5.1); Protein, Total 6.4 g/dL (5.8-8.1); Sodium 141 mmol/L (136-145)
[2023-01-06 12:57] LABS: CKMB 2.3 ng/mL (0-6.6)
[2023-01-06 15:55] LABS: CKMB 2.2 ng/mL (0-6.6)
== END 2023-01-06 16:34 | disposition left against medical advice (07) ==
LOC: ERS 11:35
DX: I12.9 Hypertensive chronic kidney disease with stage 1 through stage 4 chronic kidney disease, or unspecified chronic kidney disease (principal); N18.9 Chronic kidney disease, unspecified; R77.8 Other specified abnormalities of plasma proteins; K21.9 Gastro-esophageal reflux disease without esophagitis; Z87.891 Personal history of nicotine dependence; Z79.899 Other long term (current) drug therapy; Z79.82 Long term (current) use of aspirin
CPT/HCPCS: 36415; 80053; 82553; 84484; 85025; 93005